=== PATIENT | female | born 1930 | race Caucasian/White ===

== ENCOUNTER 2018-10-16 21:23 | Inpatient (IN) | payer MEDICARE, OTHER ==
[~2018-10-16] VITALS: Ht 142.2 cm; Wt 76.2 kg
--- NOTE | 2018-10-16 21:35 | NUR ---
PT BIBRA C/C GEN WEAKNESS. PER PARAMEDICS JUST RELEASED FOR LOW LIVER FUNCT. PT ON MONITOR IN BED 11. NONVERBAL. WILL CONTINUE TO MONITOR.
--- NOTE | 2018-10-16 21:40 | NUR ---
FAMILY AT BEDSIDE
--- NOTE | 2018-10-16 21:48 | NUR ---
RADIOLOGY AT BEDSIDE FOR XRAY
[2018-10-16 22:26] LABS: BASOPHILS # (AUTO) 0.1 /CMM (0.0-0.2); BASOPHILS % (AUTO) 0.5 % (0.0-2.0); EOSINOPHILS % (AUTO) 1.2 % (0.0-6.0); HEMATOCRIT 34 % (33-45); HEMOGLOBIN 11.3 g/dL (11.5-14.8); LYMPHOCYTES # (AUTO) 1.1 /CMM (0.8-4.8); MEAN CORPUSCULAR HGB CONC 33 g/dl (31.0-36.0); MEAN CORPUSCULAR VOLUME 91 fL (82-100); MONOCYTES # (AUTO) 1.2 /CMM (0.1-1.30); NEUTROPHILS # (AUTO) 8.2 /CMM (1.8-8.9); NEUTROPHILS % (AUTO) 77.3 % (43.0-81.0); PLATELET COUNT (AUTO) 183 /CMM (150-450); RED BLOOD CELL COUNT(AUTO) 3.71 MIL/uL (4.0-5.2); WHITE BLOOD COUNT (AUTO) 10.6 K/uL (4.3-11.0)
[2018-10-16 22:31] LABS: CALCIUM, SERUM 8.2 mg/dL (8.5-10.1); CARBON DIOXIDE 35 mmol/L (21-32); CHLORIDE 95 mmol/L (98-107); CREATININE 2.1 mg/dL (0.6-1.3); GLUCOSE 128 mg/dL (74-106); SODIUM SERUM 135 mmol/L (136-145); UREA NITROGEN, BLOOD 60 mg/dL (7-18)
--- NOTE | 2018-10-16 22:40 | NUR ---
PT TAKEN TO RADIOLOGY VIA DUSTIN
[2018-10-16 22:44] LABS: ALANINE AMINOTRANSFERASE 25 U/L (12-78); ALBUMIN 1.6 g/dL (3.4-5.0); ALKALINE PHOSPHATASE 134 U/L (46-116); ASPARTATE AMINOTRANSFERASE 52 U/L (15-37); BILIRUBIN,DIRECT 0.8 mg/dL (0.0-0.2); BILIRUBIN,TOTAL 1.9 mg/dL (0.2-1.0); TOTAL PROTEIN, SERUM 6.2 g/dL (6.4-8.2)
[2018-10-16 22:45] LABS: POTASSIUM 2.8 mmol/L (3.5-5.1)
[2018-10-16 22:58] LABS: PHOSPHORUS 3.7 mg/dL (2.5-4.9)
[2018-10-16 23:00] LABS: BAND % (MANUAL) 2 % (0.0-5.0)
[2018-10-16 23:02] LABS: LYMPHOCYTES % (MANUAL) 9 % (16-48); MONOCYTES % (MANUAL) 11 % (0-11.0); NEUTROPHILS % (MANUAL) 78 (42-76)
[2018-10-16 23:07] LABS: APPEARANCE,URINE CLOUDY (CLEAR); BILIRUBIN,URINE NEGATIVE (NEGATIVE); BLOOD, URINE 1+ Ery/uL (NEGATIVE); COLOR,URINE YELLOW (YELLOW); KETONES,URINE NEGATIVE (NEGATIVE); LEUKOCYTE ESTERASE ,URINE 1+ (NEGATIVE); NITRITE, URINE NEGATIVE (NEGATIVE); PH,URINE 6.5 (5.0-8.0); PROTEIN,URINE NEGATIVE (NEGATIVE); UGLUCOSE NEGATIVE (NEGATIVE); UROBILINOGEN,URINE 0.2 EU/dL (0.2)
--- NOTE | 2018-10-16 23:15 | NUR ---
DR CISNEROS CALLED, UNABLE TO REACH. MD FORTE MADE AWARE
[2018-10-16] MEDS ORDERED: IV PREMIX 0.45% NS + KCL 1,000 ML IV ONE ×2 (23:17→23:39)
[2018-10-16 23:34] LABS: BACTERIA,URINE Many /HPF (None Seen); SQUAMOUS EPITHELIAL CELL,UR Few /HPF (None Seen); WBC,URINE 21-50 /HPF (0-3)
[2018-10-16] MEDS ORDERED: IV NS 0.9% 1,000 ML IV ONE (23:36)
[2018-10-17] MEDS ORDERED: IV 1/2NS 1000 ML 1,000 ML IV PRN (00:23)
[2018-10-17] MEDS ORDERED: ZOLPIDEM TARTRATE 5 MG TABLET PO PRN (00:30)
[2018-10-17] MEDS ORDERED: ACETAMINOPHEN 325 MG TABLET PO PRN (00:30)
[2018-10-17] MEDS ORDERED: MAG HYDROX/AL HYDROX/SIMETH 30 ML UDC PO PRN (00:30)
[2018-10-17] MEDS ORDERED: Z GUARD REMEDY 2 OZ OINT TP PRN (00:30)
[2018-10-17] MEDS ORDERED: ONDANSETRON HCL/PF 4 MG/2 ML VIAL IVP PRN (00:30)
[2018-10-17] MEDS ORDERED: MAGNESIUM HYDROXIDE 30 ML UDC PO PRN (00:30)
[2018-10-17] MEDS ORDERED: HYDROMORPHONE INJ 2 MG/ML DISP.SYRIN IV PRN (00:30)
--- NOTE | 2018-10-17 00:38 | NUR ---
REPORT GIVEN TO RENE KRAMER FOR VIVEK
[2018-10-17 01:30] VITALS: BP 117/51
[2018-10-17] MEDS ORDERED: CEFTRIAXONE 1 G VIAL ONE (02:21)
[2018-10-17] MEDS: CEFTRIAXONE 1 G in IV D5W 50 ML IV SCH ×2 (03:05→21:41)
[2018-10-17 04:00] VITALS: BP 127/60
[2018-10-17 06:22] LABS: CALCIUM, SERUM 7.5 mg/dL (8.5-10.1); CARBON DIOXIDE 30 mmol/L (21-32); CHLORIDE 98 mmol/L (98-107); CREATININE 1.7 mg/dL (0.6-1.3); GLUCOSE 96 mg/dL (74-106); POTASSIUM 2.9 mmol/L (3.5-5.1); SODIUM SERUM 135 mmol/L (136-145); UREA NITROGEN, BLOOD 53 mg/dL (7-18)
[2018-10-17 06:27] LABS: CHOLESTEROL 77 mg/dL (<200); HDL CHOLESTEROL 18 mg/dL (40-60); LDL 45 mg/dL (0-99); TRIGLYCERIDES 94 mg/dL (30-150)
[2018-10-17 06:30] LABS: ALANINE AMINOTRANSFERASE 24 U/L (12-78); ALKALINE PHOSPHATASE 105 U/L (46-116); ASPARTATE AMINOTRANSFERASE 46 U/L (15-37); BILIRUBIN,TOTAL 1.7 mg/dL (0.2-1.0); MAGNESIUM 1.9 mg/dL (1.8-2.4); PHOSPHORUS 3.5 mg/dL (2.5-4.9); TOTAL PROTEIN, SERUM 5.6 g/dL (6.4-8.2)
[2018-10-17 06:34] LABS: ALBUMIN 1.4 g/dL (3.4-5.0)
[2018-10-17 06:45] LABS: BASOPHILS % (AUTO) 0.4 % (0.0-2.0); HEMATOCRIT 31 % (33-45); HEMOGLOBIN 10.7 g/dL (11.5-14.8); LYMPHOCYTES # (AUTO) 1.1 /CMM (0.8-4.8); LYMPHOCYTES % (AUTO) 11.8 % (20.0-44.0); MEAN CORPUSCULAR HGB CONC 35 g/dl (31.0-36.0); MEAN CORPUSCULAR VOLUME 89 fL (82-100); MONOCYTES # (AUTO) 1.1 /CMM (0.1-1.30); MONOCYTES % (AUTO) 11.2 % (2.0-12.0); NEUTROPHILS # (AUTO) 7.2 /CMM (1.8-8.9); NEUTROPHILS % (AUTO) 75.6 % (43.0-81.0); PLATELET COUNT (AUTO) 174 /CMM (150-450); RED BLOOD CELL COUNT(AUTO) 3.48 MIL/uL (4.0-5.2); WHITE BLOOD COUNT (AUTO) 9.5 K/uL (4.3-11.0)
--- NOTE | 2018-10-17 07:00 | NUR ---
GROCERY STORE BAGGER OPENING NOTES RECEIVED PT FROM PM SHIFT FOR VIVEK. PT ON 1L O2 SAT AT 98%. PT IS AFEBRILE ST ON TELE. PT IS A/OX1. CANADIAN SPEAKING. PT IS CONFUSED PULLING OFF GOWN. IV FLUIDS RUNNING AT 75ML/HR. L HAND IV SITE NO S/SX OF INFECTION. BED IN LOCKED/LOWEST POSITION. CALL LIGHT IN REACH. WILL CONT TO MONITOR.
[2018-10-17 08:00] VITALS: BP 93/51
[2018-10-17] MEDS: PANTOPRAZOLE 40 MG VIAL IV SCH (08:47)
[2018-10-17] MEDS: HEPARIN SODIUM, PORCINE 5000 UNITS/1 ML VIAL SQ SCH ×2 (08:51→21:00)
[2018-10-17] MEDS ORDERED: POTASSIUM CHLORIDE 20 MEQ TAB.PRT.SR PO ONE (09:00)
[2018-10-17] MEDS ORDERED: SPIRONOLACTONE 25 MG TABLET PO SCH (09:00)
[2018-10-17] MEDS ORDERED: SPIR50TA5 PO (11:07)
[2018-10-17] MEDS ORDERED: LINA72CA PO (11:07)
[2018-10-17] MEDS ORDERED: METO5TAB7 PO (11:07)
[2018-10-17] MEDS ORDERED: FURO40TA5 PO (11:07)
[2018-10-17] MEDS ORDERED: FERR325T23 PO (11:07)
[2018-10-17 12:00] VITALS: BP 97/49
[2018-10-17] MEDS: LACTULOSE 10 G/15 ML UDC (PYXIS) PO PRN ×2 (12:10→18:40)
[2018-10-17] MEDS: NYSTATIN TOP POWDER 15 GM BOTTLE TP SCH ×2 (12:21→16:57)
--- NOTE | 2018-10-17 15:30 | NUR ---
MANAGER FOREIGN NOTES RADIOLOGY INFORMED NURSE PT HAS MODERATE ASCITES, WILL NEED PT/INR FOR PROCEDURE. LEFT MESSAGE FOR DR HUNTER.
--- NOTE | 2018-10-17 15:45 | NUR ---
HAND FLESHER NOTES PER CASSIE MORALES TO DO US GUIDED PARACENTESIS/STAT PT AND INR.
[2018-10-17 16:00] VITALS: BP 105/64
[2018-10-17] MEDS ORDERED: POTASSIUM CL. PREMIX PERIPHER. 50 ML IV SCH (16:00)
--- NOTE | 2018-10-17 16:26 | NUR ---
METAL BOX MAKER NOTES PER DR HUNTER, PLEASE DO PARACENTESIS EARLY AM.
--- NOTE | 2018-10-17 19:04 | NUR ---
CLAIMS EXAMINER NOTES PT ENDORSED TO PM SHIFT FOR VIVEK. PT RESTING IN BED, WITH FAMILY AT BEDSIDE. 2ND DOSE OF LACTULOSE GIVEN. 1 SMALL BM ON SHIFT NOTED. PT'S MENTATION IMPROVED SLIGHTLY ON SHIFT. PT ABLE TO STATE NAME. TOLERATING ROOM AIR WELL. NO S/SX OF DISTRESS NOTED. SCHEDULED FOR US GUIDED PARACENTESIS IN AM. PT IS NPO. ALL NEEDS ATTENDED TO. CALL LIGHT IN REACH.
--- NOTE | 2018-10-17 19:10 | NUR ---
TELE/RN INITIAL NOTES RECEIVED PT IN BED, ALERT AND VERBALLY RESPONSIVE. FAMILY AT BEDSIDE. SR HR 90S ON TELE. ON ROOM AIR, NO SOB NOTED. WITH INTACT AND PATENT LHAND G20 HEPLOCK. HOB ELEVATED. SAFETY MEASURES IN PLACED. CALL LIGHT WITHIN REACH. WILL CONT TO MONITOR. PT IS ON NPO FOR PROCEDURE TOMORROW.
[2018-10-17 20:00] VITALS: BP 106/60
[2018-10-18] VITALS: BP 109/54
[2018-10-18 04:00] VITALS: BP 108/58
[2018-10-18 06:17] LABS: BASOPHILS % (AUTO) 0.3 % (0.0-2.0); EOSINOPHILS % (AUTO) 0.7 % (0.0-6.0); HEMATOCRIT 33 % (33-45); HEMOGLOBIN 11.1 g/dL (11.5-14.8); LYMPHOCYTES # (AUTO) 0.8 /CMM (0.8-4.8); LYMPHOCYTES % (AUTO) 7.9 % (20.0-44.0); MEAN CORPUSCULAR HGB CONC 34 g/dl (31.0-36.0); MEAN CORPUSCULAR VOLUME 91 fL (82-100); MONOCYTES % (AUTO) 10.1 % (2.0-12.0); NEUTROPHILS # (AUTO) 8.1 /CMM (1.8-8.9); PLATELET COUNT (AUTO) 168 /CMM (150-450); RED BLOOD CELL COUNT(AUTO) 3.63 MIL/uL (4.0-5.2)
[2018-10-18 06:38] LABS: CALCIUM, SERUM 7.7 mg/dL (8.5-10.1); CARBON DIOXIDE 31 mmol/L (21-32); CHLORIDE 102 mmol/L (98-107); CREATININE 1.8 mg/dL (0.6-1.3); GLUCOSE 100 mg/dL (74-106); POTASSIUM 3.3 mmol/L (3.5-5.1); SODIUM SERUM 140 mmol/L (136-145); UREA NITROGEN, BLOOD 53 mg/dL (7-18)
--- NOTE | 2018-10-18 06:51 | NUR ---
RN NOTES PT RESTING COMFORTABLY IN BED. DAUGHTER AT BEDSIDE. NO ACUTE CHANGES NOTED THROUGHOUT THE SHIFT. SAFETY MEASURES OBSERVED AT ALL TIMES. PT WAS KEPT ON NPO FOR PARACENTESIS THIS AM. ENDORSED TO AM SHIFT RN FOR VIVEK
--- NOTE | 2018-10-18 07:15 | NUR ---
ASSEMBLER 1ST SHIFT OPENING NOTES RECEIVED BEDSIDE REPOST FROM NOC PT IN BED, ALERT AND VERBALLY RESPONSIVE. FAMILY AT BEDSIDE. SR HR 90S ON TELE. ON ROOM AIR, NO SIGNS OR SYMPTOMS OF RESPIRATORY DISTRESS OR ACUTE PAIN NOTED L HAND #20 GAUGE SALINE LOCK . HOB ELEVATED.PATIENT NPO AT THIS TIME FOR AM PROCEDURE SAFETY MEASURES IN PLACED. CALL LIGHT WITHIN REACH. WILL CONT TO MONITOR.
[2018-10-18 08:00] VITALS: BP 108/53
[2018-10-18] MEDS: PANTOPRAZOLE 40 MG VIAL IV SCH (08:13)
[2018-10-18] MEDS: HEPARIN SODIUM, PORCINE 5000 UNITS/1 ML VIAL SQ SCH ×2 (08:13→20:42)
[2018-10-18] MEDS: SPIRONOLACTONE 25 MG TABLET PO SCH (08:13)
[2018-10-18] MEDS: NYSTATIN TOP POWDER 15 GM BOTTLE TP SCH ×2 (08:14→16:04)
[2018-10-18] MEDS: LACTULOSE 10 G/15 ML UDC (PYXIS) PO PRN ×4 (09:58→20:41)
[2018-10-18] MEDS ORDERED: ALBUMIN 25% 12.5 GM/50 ML BOTTLE IV ONE (10:00)
--- NOTE | 2018-10-18 10:00 | NUR ---
RN MS NOTES PATIENT HAD BEDSIDE ULTRASOUND GUIDED PARACENTESIS. 3250 ML REMOVED FROM LLQ FLUIDS SENT TO CYTOLOGY AND LAB
[2018-10-18] MEDS ORDERED: POTASSIUM CHLORIDE 20 MEQ TAB.PRT.SR PO ONE (11:00)
[2018-10-18] MEDS ORDERED: ALBUMIN 25% 12.5 GM in PREMIX 1 EA IV ONE (11:30)
--- NOTE | 2018-10-18 13:43 | NUR ---
WOUND CARE CONSULT: PT PRESENTS WITH LEFT BUTTOCK INCONTINENCE ASSOCIATED SKIN DAMAGE, PRESENT ON ADMISSION. PT ALSO NOTED TO HAVE PARACENTESIS SITE DRESSINGS WITH WEEPING. PITTING EDEMA NOTED TO BE GENERALIZED. PT IS INCONTINENT. ALL SKIN PROTECTION AND WOUND CARE RECOMMENDATIONS DISCUSSED WITH NURSING STAFF. WILL SEE PRN. SOUZA AGREEMENT WITH PLAN OF CARE. Addendum: 10/18/18 at 1345 by PONCHO AMIN WNDNU Amended: Links added.
--- NOTE | 2018-10-18 15:09 | NUR ---
RN MS NOTES CALL OUT TO MD FOR FLEETS ENEMA ORDER
[2018-10-18 16:00] VITALS: BP 107/52
--- NOTE | 2018-10-18 19:00 | NUR ---
RECIEVED ALERT AND WHEN DTR TRANSLATES ANSWER HER. C/O ABD PAIN, RECIEVING LACTULSE NEEDING TO HAVE A BM ABD ROUND
--- NOTE | 2018-10-18 19:20 | NUR ---
RN MS CLOSING NOTES PT RESTING COMFORTABLY IN BED. DAUGHTER AT BEDSIDE. NO ACUTE CHANGES NOTED THROUGHOUT THE SHIFT.DRESSING REINFORCED TO LLQ PUNCTURE SITE. LACTULOSE GIVEN SAFETY MEASURES OBSERVED AT ALL TIMES. ENDORSED TO PM SHIFT RX SMALL BM N FOR VIVEK
[2018-10-18 20:00] VITALS: BP 117/66
[2018-10-18] MEDS: CEFTRIAXONE 1 G in IV D5W 50 ML IV SCH (20:41)
[2018-10-18] MEDS: HYDROCODONE/APAP 5/325MG 1 EACH TABLET PO PRN (20:43)
[2018-10-18 21:00] VITALS: BP 117/66
[2018-10-19] MEDS: HYDROCODONE/APAP 5/325MG 1 EACH TABLET PO PRN ×2 (01:00→02:01)
[2018-10-19] MEDS: LACTULOSE 10 G/15 ML UDC (PYXIS) PO PRN ×2 (01:09→07:39)
[2018-10-19] MEDS ORDERED: LACTULOSE 10 G/15 ML UDC (PYXIS) ONE (01:13)
[2018-10-19 04:00] VITALS: BP 97/57
[2018-10-19 04:07] VITALS: BP 119/66
[2018-10-19 05:01] VITALS: BP 97/57
--- NOTE | 2018-10-19 05:26 | NUR ---
ending notes: patient awake most of the night. d/t abd cramps. dtr. insisted that she be given lactulose, explained to her her mom needs to rest. 2 doses given last dose @ 01:00. Medicated with norco 5/325 tablet times 2 last dose 0100 and effective she would sleep 1 - 2 hrs. abd round taunt BS via auscultation present. 0 BM this shift
[2018-10-19] MEDS: PANTOPRAZOLE 40 MG VIAL IV SCH (07:38)
[2018-10-19 08:00] VITALS: BP 100/66
--- NOTE | 2018-10-19 09:00 | NUR ---
RN NOTES PATIENT SEEN & EXAMINED BY DR HUNTER & RECEIVED NEW ORDERS FOR STAT KUB AND LACTULOSE ENEMA. NEW ORDERS NOTED & CARRIED OUT.
[2018-10-19] MEDS: SPIRONOLACTONE 25 MG TABLET PO SCH (09:37)
[2018-10-19] MEDS: NYSTATIN TOP POWDER 15 GM BOTTLE TP SCH ×2 (09:40→16:49)
[2018-10-19] MEDS: HEPARIN SODIUM, PORCINE 5000 UNITS/1 ML VIAL SQ SCH ×2 (09:41→20:23)
[2018-10-19 11:02] LABS: BASOPHILS # (AUTO) 0.1 /CMM (0.0-0.2); BASOPHILS % (AUTO) 0.8 % (0.0-2.0); EOSINOPHILS % (AUTO) 0.5 % (0.0-6.0); HEMATOCRIT 36 % (33-45); HEMOGLOBIN 11.8 g/dL (11.5-14.8); LYMPHOCYTES # (AUTO) 0.8 /CMM (0.8-4.8); LYMPHOCYTES % (AUTO) 5.7 % (20.0-44.0); MEAN CORPUSCULAR HGB CONC 33 g/dl (31.0-36.0); MEAN CORPUSCULAR VOLUME 91 fL (82-100); MONOCYTES % (AUTO) 7.1 % (2.0-12.0); NEUTROPHILS # (AUTO) 12.7 /CMM (1.8-8.9); NEUTROPHILS % (AUTO) 85.9 % (43.0-81.0); PLATELET COUNT (AUTO) 215 /CMM (150-450); RED BLOOD CELL COUNT(AUTO) 3.94 MIL/uL (4.0-5.2); WHITE BLOOD COUNT (AUTO) 14.7 K/uL (4.3-11.0)
[2018-10-19 11:14] LABS: ALANINE AMINOTRANSFERASE 28 U/L (12-78); ALBUMIN 1.5 g/dL (3.4-5.0); ALKALINE PHOSPHATASE 84 U/L (46-116); ASPARTATE AMINOTRANSFERASE 45 U/L (15-37); CALCIUM, SERUM 7.9 mg/dL (8.5-10.1); CARBON DIOXIDE 24 mmol/L (21-32); CHLORIDE 98 mmol/L (98-107); CREATININE 2.3 mg/dL (0.6-1.3); GLUCOSE 167 mg/dL (74-106); MAGNESIUM 2.4 mg/dL (1.8-2.4); PHOSPHORUS 4.1 mg/dL (2.5-4.9); POTASSIUM 3.7 mmol/L (3.5-5.1); SODIUM SERUM 133 mmol/L (136-145); TOTAL PROTEIN, SERUM 5.9 g/dL (6.4-8.2); UREA NITROGEN, BLOOD 56 mg/dL (7-18)
[2018-10-19] MEDS ORDERED: LACTULOSE UDC 200 G in SODIUM CHLORIDE IRRIG SOLUTION 400 ML IR ONE (12:00)
[2018-10-19 16:00] VITALS: BP_SYST 100; BP_SYST 105; BP_DIAS 55; BP_DIAS 66
--- NOTE | 2018-10-19 16:02 | NUR ---
RN NOTES LACTULOSE ENEMA GIVEN ORDERED & LARGE BM NOTED. ORTIZ CATH INSERTED W/ CLOUDY, YELLOW URINE NOTED. URINE SAMPLE COLLECTED.
[2018-10-19 16:21] LABS: CREATININE, URINE 123.5 MG/DL (30.0-125.0); URINE TOTAL PROTEIN 28.9 mg/dL (0-11.9)
[2018-10-19 16:37] LABS: APPEARANCE,URINE CLOUDY (CLEAR); BILIRUBIN,URINE NEGATIVE (NEGATIVE); BLOOD, URINE 1+ Ery/uL (NEGATIVE); COLOR,URINE YELLOW (YELLOW); KETONES,URINE NEGATIVE (NEGATIVE); LEUKOCYTE ESTERASE ,URINE 2+ (NEGATIVE); NITRITE, URINE NEGATIVE (NEGATIVE); PH,URINE 5.5 (5.0-8.0); PROTEIN,URINE NEGATIVE (NEGATIVE); UGLUCOSE NEGATIVE (NEGATIVE); UROBILINOGEN,URINE 0.2 EU/dL (0.2)
[2018-10-19 16:46] LABS: BACTERIA,URINE Few /HPF (None Seen); SQUAMOUS EPITHELIAL CELL,UR Few /HPF (None Seen); WBC,URINE 51-80 /HPF (0-3)
[2018-10-19 17:05] LABS: EOSINOPHIL,URINE None Seen
--- NOTE | 2018-10-19 18:38 | NUR ---
LIME KILN AND RECAUSTICIZING OPERATOR. WHILE PT DAUGHTER FEEDING PT VOMITED. VITALS STABLE. NO ACUTE DISTRESS NOTED. ZOFRAN GIVEN PER MD ORDERED. WILL CONTINUE TO MONITOR.
[2018-10-19 20:00] VITALS: BP 110/64
[2018-10-19] MEDS: CEFTRIAXONE 1 G in IV D5W 50 ML IV SCH (20:23)
[2018-10-20 04:00] VITALS: BP 105/59
[2018-10-20 06:21] LABS: BASOPHILS # (AUTO) 0.1 /CMM (0.0-0.2); BASOPHILS % (AUTO) 0.4 % (0.0-2.0); EOSINOPHILS % (AUTO) 1.2 % (0.0-6.0); HEMATOCRIT 37 % (33-45); HEMOGLOBIN 12.1 g/dL (11.5-14.8); LYMPHOCYTES # (AUTO) 1.4 /CMM (0.8-4.8); LYMPHOCYTES % (AUTO) 8.6 % (20.0-44.0); MEAN CORPUSCULAR HGB CONC 33 g/dl (31.0-36.0); MEAN CORPUSCULAR VOLUME 90 fL (82-100); MONOCYTES # (AUTO) 1.7 /CMM (0.1-1.30); MONOCYTES % (AUTO) 10.8 % (2.0-12.0); NEUTROPHILS # (AUTO) 12.7 /CMM (1.8-8.9); PLATELET COUNT (AUTO) 217 /CMM (150-450); RED BLOOD CELL COUNT(AUTO) 4.05 MIL/uL (4.0-5.2); WHITE BLOOD COUNT (AUTO) 16.1 K/uL (4.3-11.0)
[2018-10-20 06:53] LABS: ALANINE AMINOTRANSFERASE 26 U/L (12-78); ALKALINE PHOSPHATASE 87 U/L (46-116); ASPARTATE AMINOTRANSFERASE 50 U/L (15-37); BILIRUBIN,TOTAL 1.9 mg/dL (0.2-1.0); CALCIUM, SERUM 7.9 mg/dL (8.5-10.1); CARBON DIOXIDE 26 mmol/L (21-32); CHLORIDE 98 mmol/L (98-107); CREATININE 2.4 mg/dL (0.6-1.3); GLUCOSE 94 mg/dL (74-106); MAGNESIUM 2.8 mg/dL (1.8-2.4); PHOSPHORUS 4.8 mg/dL (2.5-4.9); POTASSIUM 4.7 mmol/L (3.5-5.1); SODIUM SERUM 132 mmol/L (136-145); UREA NITROGEN, BLOOD 61 mg/dL (7-18)
[2018-10-20 06:57] LABS: ALBUMIN 1.4 g/dL (3.4-5.0)
[2018-10-20 07:02] LABS: CREATINE KINASE, TOTAL 70 U/L (26-192)
--- NOTE | 2018-10-20 07:51 | NUR ---
RN AM SHIFT NOTE PATIENT AWAKE RESPONSIVE TO VERBAL STIMULI. ALERT X2 GENERALIZED EDEMA NOTED. ORTIZ CATH DRAINING AND PATENT. BEDREST, RENAL PUREE DIET. RT IV 20 GAUGE PATENT, PT OT TOLERATED, ASITES SP TAP TO DRAIN FLUID DONE 10/18. BED IN LOW POSITION, SIDE RAILS UP CONTINUE TO MONITOR.
[2018-10-20 08:00] VITALS: BP 94/50
[2018-10-20] MEDS: SPIRONOLACTONE 25 MG TABLET PO SCH (08:07)
[2018-10-20] MEDS: PANTOPRAZOLE 40 MG VIAL IV SCH (08:09)
[2018-10-20] MEDS: HEPARIN SODIUM, PORCINE 5000 UNITS/1 ML VIAL SQ SCH ×2 (08:10→21:04)
[2018-10-20] MEDS: NYSTATIN TOP POWDER 15 GM BOTTLE TP SCH ×2 (09:00→17:05)
[2018-10-20] MEDS ORDERED: DOCUSATE SODIUM 100 MG CAPSULE PO ONE (10:00)
[2018-10-20] MEDS: HYDROCODONE/APAP 5/325MG 1 EACH TABLET PO PRN (10:11)
[2018-10-20] MEDS: LACTULOSE 10 G/15 ML UDC (PYXIS) PO PRN ×2 (10:32→21:12)
[2018-10-20] MEDS: IV NS 0.9% 1,000 ML IV PRN (11:43)
[2018-10-20 12:00] VITALS: BP 94/50
[2018-10-20 16:00] VITALS: BP 91/49
--- NOTE | 2018-10-20 19:35 | NUR ---
RN CLOSING NOTE PATIENT IN BED ALERT X2. MS FLOOR. RENAL PUREE DIET. ATE 50% BREAKFAST LUNCH AND DINNER. FAMILY AT BEDSIDE. IV CHANGED LEFT HAND PATENT AND INTACT. PATIENT COMFORTABLE , BED IN LOW POSITION. CONTINUE TO MONITOR. MONITOR AMONIA LEVELS PER MD ORDER.
[2018-10-20 20:00] VITALS: BP 93/50
--- NOTE | 2018-10-20 20:00 | NUR ---
RN INITIAL NOTE PATIENT IN BED, AWAKE. FAMILY AT BEDSIDE. A&O X2. GENERALIZED EDEMA NOTED. ORTIZ CATH DRAINING AND PATENT. BEDREST, RT IV 20 GAUGE PATENT, ASIKAMINI SP TAP TO DRAIN FLUID DONE 10/18. BED IN LOW LOCKED POSITION, SIDE RAILS UP X2, CALL LIGHT IN REACH. WILL CONTINUE TO MONITOR.
[2018-10-20] MEDS: CEFTRIAXONE 1 G in IV D5W 50 ML IV SCH (21:03)
[2018-10-21 04:00] VITALS: BP 93/50
[2018-10-21] MEDS: IV NS 0.9% 1,000 ML IV PRN ×2 (04:35→23:49)
--- NOTE | 2018-10-21 06:10 | NUR ---
RN CLOSING NOTES PT RESTING COMFORTABLY IN BED. DAUGHTER AT BEDSIDE. NO ACUTE CHANGES NOTED THROUGHOUT THE SHIFT. LACTULOSE GIVEN SAFETY MEASURES OBSERVED AT ALL TIMES. ENDORSED TO AM SHIFT FOR VIVEK
[2018-10-21 07:21] LABS: BASOPHILS # (AUTO) 0.1 /CMM (0.0-0.2); BASOPHILS % (AUTO) 0.4 % (0.0-2.0); EOSINOPHILS % (AUTO) 0.8 % (0.0-6.0); HEMATOCRIT 33 % (33-45); HEMOGLOBIN 11.1 g/dL (11.5-14.8); LYMPHOCYTES # (AUTO) 1.3 /CMM (0.8-4.8); LYMPHOCYTES % (AUTO) 7.6 % (20.0-44.0); MEAN CORPUSCULAR HGB CONC 34 g/dl (31.0-36.0); MEAN CORPUSCULAR VOLUME 90 fL (82-100); MONOCYTES % (AUTO) 11.6 % (2.0-12.0); NEUTROPHILS # (AUTO) 13.9 /CMM (1.8-8.9); NEUTROPHILS % (AUTO) 79.6 % (43.0-81.0); PLATELET COUNT (AUTO) 204 /CMM (150-450); RED BLOOD CELL COUNT(AUTO) 3.67 MIL/uL (4.0-5.2); WHITE BLOOD COUNT (AUTO) 17.4 K/uL (4.3-11.0)
--- NOTE | 2018-10-21 07:30 | NUR ---
INITIAL: PATIENT IN BED, AWAKE. FAMILY AT BEDSIDE. A&O X2. GENERALIZED EDEMA NOTED. ORTIZ CATH DRAINING AND PATENT. BEDREST, RT IV 20 GAUGE PATENT, ASITES SP TAP TO DRAIN FLUID DONE 10/18. BED IN LOW LOCKED POSITION, SIDE RAILS UP X2, CALL LIGHT IN REACH. WILL CONTINUE TO MONITOR.
[2018-10-21] MEDS: PANTOPRAZOLE 40 MG VIAL IV SCH (07:38)
[2018-10-21 08:00] VITALS: BP 108/49
[2018-10-21 08:07] LABS: AFP, TUMOR MARKER 3.8 ng/mL (0.0-8.3)
[2018-10-21 08:08] LABS: CALCIUM, SERUM 7.4 mg/dL (8.5-10.1); CARBON DIOXIDE 27 mmol/L (21-32); CHLORIDE 95 mmol/L (98-107); CREATININE 2.6 mg/dL (0.6-1.3); GLUCOSE 89 mg/dL (74-106); MAGNESIUM 2.7 mg/dL (1.8-2.4); PHOSPHORUS 4.1 mg/dL (2.5-4.9); POTASSIUM 4.6 mmol/L (3.5-5.1); SODIUM SERUM 130 mmol/L (136-145); UREA NITROGEN, BLOOD 68 mg/dL (7-18)
[2018-10-21] MEDS: DOCUSATE SODIUM 100 MG CAPSULE PO SCH (08:50)
[2018-10-21 08:52] LABS: EOSINOPHILS % (MANUAL) 2 % (0-4); LYMPHOCYTES % (MANUAL) 7 % (16-48); MONOCYTES % (MANUAL) 11 % (0-11.0); NEUTROPHILS % (MANUAL) 80 (42-76)
[2018-10-21] MEDS: NYSTATIN TOP POWDER 15 GM BOTTLE TP SCH ×2 (08:52→16:18)
[2018-10-21] MEDS: HEPARIN SODIUM, PORCINE 5000 UNITS/1 ML VIAL SQ SCH ×2 (08:54→20:41)
[2018-10-21 12:00] VITALS: BP 108/56
[2018-10-21 16:00] VITALS: BP 99/51
[2018-10-21] MEDS: LACTULOSE 10 G/15 ML UDC (PYXIS) PO PRN (16:38)
--- NOTE | 2018-10-21 18:05 | NUR ---
closing PT RESTING COMFORTABLY IN BED. DAUGHTER AT BEDSIDE. NO ACUTE CHANGES NOTED THROUGHOUT THE SHIFT.DRESSING REINFORCED TO LLQ PUNCTURE SITE. LACTULOSE GIVEN SAFETY MEASURES OBSERVED AT ALL TIMES. ENDORSED TO PM SHIFT MEDIUM BM X3.
[2018-10-21 20:00] VITALS: BP 107/52
--- NOTE | 2018-10-21 20:00 | NUR ---
RN OPENING NOTE: RECEIVED PATIENT IN BED, AWAKE, ALERT AND VERBALLY RESPONSIVE YAKUT SPEAKING ONLY. RESPIRATION EVEN AND UNLABORED ON O2 2L/MIN VIA NC SATURATING 97%. NO FACIAL GRIMACING NOTED. AN YAKUT SPEAKING NURSE WAS ASKED TO INTERPRET FOR THE PATIENT. (R) FOREARM IV LINE NOTED PATENT AND INTACT INFUSING NS @75ML/HR. ORTIZ CATHETER IN PLACED WITH YELLOW URINE DRAINING TO GRAVITY. BED ALARMED AND ON LOWEST POSITION. CALL LIGHT WITHIN REACH. NEEDS ANTICIPATED.
[2018-10-21] MEDS: CEFTRIAXONE 1 G in IV D5W 50 ML IV SCH (20:36)
[2018-10-22 04:00] VITALS: BP 93/45
--- NOTE | 2018-10-22 07:00 | NUR ---
MS RN NOTES RECEIVED PT IN BED, FAMILY AT BEDSIDE. PT ON 2L NC. TOLERATING WELL. NO S/SX OF DISTRESS. PT C/O TINGLING IN FEET. BLE EDEMA 4+ NOTED. PT ON IV FLUIDS/ PATENT IV SITE NO INFECTION. F/C DRAINING CLEAR YELLOW URINE. PT IS A/OX2. ABD DISTENDED ACTIVE BS. BED IN LOCKED/LOWEST POSITION. ON HIGH FOWLERS POSITION. WILL CONT TO MONITOR
--- NOTE | 2018-10-22 07:30 | NUR ---
RN CLOSING NOTE: PATIENT REMAINED ON STABLE CONDITION. REPORT GIVEN TO PM SHIFT NURSE FOR CONTINUITY OF CARE.
--- NOTE | 2018-10-22 07:30 | NUR ---
RN CLOSING NOTE: REPORT GIVEN TO AM SHIFT NURSE FOR CONTINUITY OF CARE.
[2018-10-22 08:00] VITALS: BP 99/55
[2018-10-22] MEDS: PANTOPRAZOLE 40 MG VIAL IV SCH (09:07)
[2018-10-22] MEDS: DOCUSATE SODIUM 100 MG CAPSULE PO SCH (09:07)
[2018-10-22] MEDS: LACTULOSE 10 G/15 ML UDC (PYXIS) PO PRN (09:07)
[2018-10-22] MEDS: HEPARIN SODIUM, PORCINE 5000 UNITS/1 ML VIAL SQ SCH ×2 (09:08→20:22)
[2018-10-22] MEDS: NYSTATIN TOP POWDER 15 GM BOTTLE TP SCH ×2 (09:17→17:34)
[2018-10-22 10:24] LABS: BASOPHILS # (AUTO) 0.1 /CMM (0.0-0.2); BASOPHILS % (AUTO) 0.5 % (0.0-2.0); EOSINOPHILS % (AUTO) 0.8 % (0.0-6.0); HEMATOCRIT 36 % (33-45); HEMOGLOBIN 11.7 g/dL (11.5-14.8); LYMPHOCYTES # (AUTO) 1.3 /CMM (0.8-4.8); LYMPHOCYTES % (AUTO) 6.5 % (20.0-44.0); MEAN CORPUSCULAR HGB CONC 33 g/dl (31.0-36.0); MEAN CORPUSCULAR VOLUME 91 fL (82-100); MONOCYTES # (AUTO) 1.3 /CMM (0.1-1.30); MONOCYTES % (AUTO) 6.9 % (2.0-12.0); NEUTROPHILS # (AUTO) 16.5 /CMM (1.8-8.9); NEUTROPHILS % (AUTO) 85.3 % (43.0-81.0); PLATELET COUNT (AUTO) 231 /CMM (150-450); RED BLOOD CELL COUNT(AUTO) 3.91 MIL/uL (4.0-5.2); WHITE BLOOD COUNT (AUTO) 19.3 K/uL (4.3-11.0)
[2018-10-22 10:34] LABS: CALCIUM, SERUM 7.3 mg/dL (8.5-10.1); CARBON DIOXIDE 22 mmol/L (21-32); CHLORIDE 94 mmol/L (98-107); CREATININE 2.4 mg/dL (0.6-1.3); GLUCOSE 169 mg/dL (74-106); POTASSIUM 4.2 mmol/L (3.5-5.1); SODIUM SERUM 126 mmol/L (136-145); UREA NITROGEN, BLOOD 65 mg/dL (7-18)
[2018-10-22 10:35] LABS: SERUM AMMONIA 77 umol/L (11-32)
[2018-10-22 10:40] LABS: ALANINE AMINOTRANSFERASE 26 U/L (12-78); ALKALINE PHOSPHATASE 141 U/L (46-116); ASPARTATE AMINOTRANSFERASE 55 U/L (15-37); BILIRUBIN,TOTAL 1.1 mg/dL (0.2-1.0); TOTAL PROTEIN, SERUM 5.6 g/dL (6.4-8.2)
[2018-10-22 10:43] LABS: ALBUMIN 1.3 g/dL (3.4-5.0)
[2018-10-22 14:08] LABS: BAND % (MANUAL) 3 % (0.0-5.0); LYMPHOCYTES % (MANUAL) 4 % (16-48); MONOCYTES % (MANUAL) 1 % (0-11.0); NEUTROPHILS % (MANUAL) 92 (42-76)
[2018-10-22 16:00] VITALS: BP 90/47
--- NOTE | 2018-10-22 16:00 | NUR ---
MS RN NOTES DR EVERETT ROUNDING WITH PATIENT. PER , NO NEED TO GIVE LACTULOSE Q4H; LONG PT IS HAVING 2-3 BM/DAY.
[2018-10-22] MEDS: IV NS 0.9% 1,000 ML IV PRN (16:44)
--- NOTE | 2018-10-22 19:00 | NUR ---
MS RN CLOSING NOTES PT ENDORSED TO PM SHIFT FOR VIVEK. PT RESTING IN BED. TOLERATING O2 NC WELL. FAMILY AT BEDSIDE. BED IN LOCKED/LOWEST POSITION. CALL LIGHT IN REACH. ALL NEEDS ATTENDED TO.
--- NOTE | 2018-10-22 19:25 | NUR ---
MS RN NOTES DR HERNANDEZ CALLED BACK RE LACTIC ACID. NO NEW ORDERS GIVEN
--- NOTE | 2018-10-22 19:50 | NUR ---
RN MS OPENING NOTES RECEIVED PT IN BED, SLEEPING EASILY AROUSED TO TACTILE STIMULI. DAUGHTER AT BEDSIDE BREATHING EVEN AND UNLABORED AT THE MOMENT ON 2L OF O2 NC. F/C IN PLACE, COLLECTING CLEAR YELLOW OUTPUT. IV ACCESS ON THE RIGHT FA 22G WITH NS @75ML/HR. BED IN LOWEST LOCKED POSITION, CALL LIGHT WITHIN REACH AT ALL TIMES, WILL CONTINUE TO MONITOR.
[2018-10-22] MEDS: CEFTRIAXONE 1 G in IV D5W 50 ML IV SCH (20:21)
[2018-10-22 21:04] LABS: BILIRUBIN,DIRECT 0.5 mg/dL (0.0-0.2)
--- NOTE | 2018-10-22 22:59 | NUR ---
LACTIC ACID REDRAW OF 2.[address] HERNANDEZ, WHO REPLIED SAYING "NO SIGNIFICANT CHANGES"
[2018-10-23] VITALS: BP 93/53
[2018-10-23] MEDS ORDERED: IV NS 0.9% 1,000 ML BAG IV ONE (02:30)
--- NOTE | 2018-10-23 03:57 | NUR ---
PT BP AT 83/40, PAGED MARY, 1L BOLUS ORDERED, AFTER 200ML BP INCREASED TO 93/53, WILL CONTINUE TO MONITOR
[2018-10-23] MEDS: IV NS 0.9% 1,000 ML IV PRN (05:29)
[2018-10-23 06:29] LABS: APPEARANCE,URINE SL CLOUDY (CLEAR); BILIRUBIN,URINE NEGATIVE (NEGATIVE); BLOOD, URINE 2+ Ery/uL (NEGATIVE); KETONES,URINE NEGATIVE (NEGATIVE); LEUKOCYTE ESTERASE ,URINE TRACE (NEGATIVE); NITRITE, URINE NEGATIVE (NEGATIVE); PH,URINE 5.5 (5.0-8.0); PROTEIN,URINE NEGATIVE (NEGATIVE); UGLUCOSE NEGATIVE (NEGATIVE); UROBILINOGEN,URINE 0.2 EU/dL (0.2)
[2018-10-23 06:41] LABS: COLOR,URINE DARK YELLOW (YELLOW)
--- NOTE | 2018-10-23 06:41 | NUR ---
RN MS CLOSING NOTES PT REMAINS IN BED, AWAKE ALERT ORIENTEDX2. DAUGHTER AT BEDSIDE. BREATHING EVEN AND UNLABORED AT THE MOMENT ON 2L OF O2 NC. F/C IN PLACE, COLLECTING CLEAR YELLOW OUTPUT. IV ACCESS ON THE LEFT HAND 22G WITH NS @75ML/HR. BED IN LOWEST LOCKED POSITION, CALL LIGHT WITHIN REACH AT ALL TIMES, WILL ENDORSE TO DAY NURSE FOR VIVEK
[2018-10-23 06:44] LABS: BACTERIA,URINE Moderate /HPF (None Seen); SQUAMOUS EPITHELIAL CELL,UR Few /HPF (None Seen)
[2018-10-23 06:45] LABS: YEAST,URINE Moderate /HPF (None Seen)
--- NOTE | 2018-10-23 07:15 | NUR ---
RN MS OPENING NOTES RECEIVED BEDSIDE REPORT FROM NOC RN. PATIENT IN BED AWAKE A/O X3 CAMEROONIAN SPEAKING DAUGHTER AT BEDSIDE NO SIGNS OR SYMPTOMS OF RESPIRATORY DISTRESS ON 2 LTRS NASAL CANNULA OR ACUTE PAIN ORTIZ CATH DRAINING DARK YELLOW URINE WITH SOME BLOOD STREAKS. ABDOMEN IS ROUNDED AND HARD. IVF IN (L) HAND NS @ 75 ML/HR . NO INFILTRATION NOTED. LABS TO BE DRAWN AND REVIEWED. WILL OBTAIN A MIDLINE PATIENT IS HARD STICK. SAFETY PRECAUTIONS IN PLACE BED IN LOW POSITION CALL LIGHT WITHIN REACH. WILL CONT TO MONITOR
[2018-10-23 08:00] VITALS: BP 89/50
[2018-10-23 08:07] LABS: *SPE A/G RATIO 0.5 (0.7-1.7); *SPE ALBUMIN 1.9 g/dL (2.9-4.4); *SPE ALPHA-1-GLOBULIN 0.2 g/dL (0.0-0.4); *SPE ALPHA-2-GLOBULIN 0.4 g/dL (0.4-1.0); *SPE BETA GLOBULIN 0.9 g/dL (0.7-1.3); *SPE GLOBULIN, TOTAL 3.7 g/dL (2.2-3.9); *SPE M-SPIKE 1.7 g/dL (Not Observed); *SPEGAMMA GLOBULIN 2.3 g/dL (0.4-1.8)
[2018-10-23 08:48] LABS: CALCIUM, SERUM 7.2 mg/dL (8.5-10.1); CARBON DIOXIDE 24 mmol/L (21-32); CHLORIDE 96 mmol/L (98-107); GLUCOSE 94 mg/dL (74-106); MAGNESIUM 2.4 mg/dL (1.8-2.4); PHOSPHORUS 3.8 mg/dL (2.5-4.9); POTASSIUM 4.1 mmol/L (3.5-5.1); SODIUM SERUM 127 mmol/L (136-145); UREA NITROGEN, BLOOD 64 mg/dL (7-18)
[2018-10-23 08:59] LABS: THYROID STIMULATING HORMONE 2.316 uIU/mL (0.358-3.74); URIC ACID 10.1 mg/dL (2.6-7.2)
[2018-10-23] MEDS: DOCUSATE SODIUM 100 MG CAPSULE PO SCH (09:00)
[2018-10-23] MEDS: FAMOTIDINE/PF INJ 20 MG/2 ML VIAL IV SCH ×2 (09:00→20:51)
[2018-10-23] MEDS: HEPARIN SODIUM, PORCINE 5000 UNITS/1 ML VIAL SQ SCH (09:02)
[2018-10-23 09:42] LABS: OSMOLALITY,URINE 415 mOS/kg (340-1090)
[2018-10-23 09:45] LABS: BASOPHILS # (AUTO) 0.1 /CMM (0.0-0.2); BASOPHILS % (AUTO) 0.4 % (0.0-2.0); EOSINOPHILS % (AUTO) 0.9 % (0.0-6.0); HEMATOCRIT 37 % (33-45); HEMOGLOBIN 12.4 g/dL (11.5-14.8); LYMPHOCYTES # (AUTO) 1.3 /CMM (0.8-4.8); LYMPHOCYTES % (AUTO) 6.2 % (20.0-44.0); MEAN CORPUSCULAR HGB CONC 34 g/dl (31.0-36.0); MEAN CORPUSCULAR VOLUME 91 fL (82-100); MONOCYTES # (AUTO) 1.8 /CMM (0.1-1.30); MONOCYTES % (AUTO) 8.3 % (2.0-12.0); NEUTROPHILS # (AUTO) 18.4 /CMM (1.8-8.9); NEUTROPHILS % (AUTO) 84.2 % (43.0-81.0); PLATELET COUNT (AUTO) 222 /CMM (150-450); RED BLOOD CELL COUNT(AUTO) 4.06 MIL/uL (4.0-5.2); WHITE BLOOD COUNT (AUTO) 21.8 K/uL (4.3-11.0)
[2018-10-23 09:46] LABS: URINE SODIUM, RANDOM < 5 mmol/l (40-220)
[2018-10-23 09:58] LABS: CARBON DIOXIDE 24 mmol/L (21-32); CHLORIDE 97 mmol/L (98-107); CREATININE 2.1 mg/dL (0.6-1.3); GLUCOSE 109 mg/dL (74-106); POTASSIUM 4.1 mmol/L (3.5-5.1); SODIUM SERUM 127 mmol/L (136-145); UREA NITROGEN, BLOOD 66 mg/dL (7-18)
[2018-10-23 10:05] LABS: SERUM AMMONIA 64 umol/L (11-32)
[2018-10-23 10:17] LABS: BAND % (MANUAL) 3 % (0.0-5.0); LYMPHOCYTES % (MANUAL) 8 % (16-48); MONOCYTES % (MANUAL) 2 % (0-11.0); NEUTROPHILS % (MANUAL) 87 (42-76)
[2018-10-23] MEDS: NYSTATIN TOP POWDER 15 GM BOTTLE TP SCH ×2 (11:03→17:06)
[2018-10-23] MEDS ORDERED: ALBUMIN 25% 12.5 GM/50 ML BOTTLE IV ONE (13:00)
[2018-10-23] MEDS ORDERED: ALBUMIN 5% 12.5 GM in PREMIX 1 EA IV ONE (13:00)
--- NOTE | 2018-10-23 13:05 | NUR ---
RN MS NOTES PATIENT MADE NPO FOR US OF ABDOMEN. PATENT ALSO POSITIVE FOR (R) FEMORAL DVT DR SOLO AWARE ORDERS TO START HEPARIN DRIP. PT/INR DRAWN FOR BASELINE
[2018-10-23] MEDS: HEPARIN INFUSION/D5W 500 ML IV PRN (15:12)
[2018-10-23] MEDS ORDERED: HEPARIN SODIUM, PORCINE 5000 UNITS/1 ML VIAL IV ONE (15:30)
[2018-10-23] MEDS ORDERED: DOSE PER PHARMACY MICAFUNGIN 1 EA XX PRN (15:30)
[2018-10-23 16:00] VITALS: BP 83/40
[2018-10-23] MEDS: MICAFUNGIN SODIUM 100 MG in IV NS 0.9% 100 ML IV SCH (16:20)
[2018-10-23] MEDS: CLOTRIMAZOLE 10 MG TROCHE MM SCH ×3 (16:22→20:50)
--- NOTE | 2018-10-23 16:41 | NUR ---
RN MS NOTES PATIENT GIVEN 3000 UNITS BOLUS HEPARIN PER DR SOLO. HOLDING IVF D/T PATIENT HAS +4 PITTING EDEMA
--- NOTE | 2018-10-23 19:15 | NUR ---
MS/RN INITIAL NOTES RECEIVED PT IN BED, ALERT AND VERBALLY RESPONSIVE. DAUGHTER AT BEDSIDE. ON 2L O2 VIA NC, NO SOB NOTED. WITH ONGOING HEPARIN DRIP AT 1250 UNITS/KG (25MLS/HR) ON LHAND G22 IV. NEXT PTT @2100. F/C INTACT AND IN PLACED, DRAINING BY GRAVITY. PER AM RN REPORT, PT'S BP HAS BEEN LOW ON SBP OF 80S. IVF NS WAS HELD DURING AM SHIFT. HOB ELEVATED. SAFETY MEASURES AND ASPIRATION PRECAUTION IN PLACED. CALL LIGHT WITHIN EASY REACH. WILL CONT TO MONITOR
--- NOTE | 2018-10-23 19:30 | NUR ---
RN NOTES CURRENT BP 82/49. RECHECKED 3X, SBP STILL ON 80S. NOTIFIED TECHNICAL SOLUTIONS ENGINEER MARY RE: PT'S BP. AWAITING FOR ORDERS
--- NOTE | 2018-10-23 19:31 | NUR ---
RN MS CLOSING NOTES PATIENT IN BED AWAKE A/O X3 TANZANIAN SPEAKING DAUGHTER AT BEDSIDE NO SIGNS OR SYMPTOMS OF RESPIRATORY DISTRESS ON 2 LTRS NASAL CANNULA OR ACUTE PAIN ORTIZ CATH DRAINING DARK YELLOW URINE WITH SOME BLOOD STREAKS. ABDOMEN IS ROUNDED AND HARD.PITTING +4 AND BILATERAL EXTREMITIES IVF IN (L) HAND NS @5ML/HR TKO HEPARIN RUNNING 1250 UNITS/ 25 ML/HR . NO INFILTRATION NOTED.PTT/INR NEXT DRAW AT 2100. WILL . SAFETY PRECAUTIONS IN PLACE BED IN LOW POSITION CALL LIGHT WITHIN REACH. VIVEK
[2018-10-23 20:00] VITALS: BP_SYST 100; BP_SYST 82; BP_DIAS 42; BP_DIAS 56
--- NOTE | 2018-10-23 20:00 | NUR ---
RN NOTES RECHECK BP= 100/56. TOLL PATROLMAN MARY IN UNIT. UPDATED WITH PT'S CONDITION. VERIFY IF WANT TO CONTINUE OR D/C IVF NS AT 75 ML/HR. PER TOLL PATROLMAN CONT IVF AND CONT TO MONITOR
[2018-10-23] MEDS: CEFTRIAXONE 1 G in IV D5W 50 ML IV SCH (20:51)
--- NOTE | 2018-10-23 22:00 | NUR ---
RN NOTES CALLED LAB TO FOLLOW UP PTT RESULT, PER LAB RESULT NOT READY YET.
--- NOTE | 2018-10-23 22:10 | NUR ---
RN NOTES REPEAT PTT DONE, PER CHECO(LAB) PREVIOUS PTT WAS TOO HIGH, NEED TO RECHECK
--- NOTE | 2018-10-23 23:00 | NUR ---
RN NOTES RECEIVED CALL FROM LELO (LAB), PER LELO REPEAT PTT UNABLE TO READ, INDICATE THAT PTT IS MORE THAN 170 NOTIFIED CAREER TRANSITION SPECIALIST JESSE HERNANDEZ RE: PTT LEVEL OF >170, HEPARIN DRIP WAS HELD, CAREER TRANSITION SPECIALIST ORDERED: HOLD DRIP FOR 1HOUR, DECREASE RATE TO 1000UNITS/KG THEN REPEAT PTT IN 6HRS(0600). ORDERS NOTED AND CARRIED OUT
[2018-10-24] MEDS: IV NS 0.9% 1,000 ML IV PRN (03:45)
[2018-10-24 04:00] VITALS: BP 92/50
[2018-10-24] MEDS: CLOTRIMAZOLE 10 MG TROCHE MM SCH ×5 (06:08→21:40)
[2018-10-24 06:55] LABS: BASOPHILS # (AUTO) 0.1 /CMM (0.0-0.2); BASOPHILS % (AUTO) 0.6 % (0.0-2.0); HEMATOCRIT 34 % (33-45); HEMOGLOBIN 11.4 g/dL (11.5-14.8); LYMPHOCYTES # (AUTO) 1.6 /CMM (0.8-4.8); LYMPHOCYTES % (AUTO) 7.4 % (20.0-44.0); MEAN CORPUSCULAR HGB CONC 33 g/dl (31.0-36.0); MEAN CORPUSCULAR VOLUME 91 fL (82-100); MONOCYTES # (AUTO) 1.8 /CMM (0.1-1.30); MONOCYTES % (AUTO) 8.3 % (2.0-12.0); NEUTROPHILS # (AUTO) 17.8 /CMM (1.8-8.9); NEUTROPHILS % (AUTO) 82.7 % (43.0-81.0); PLATELET COUNT (AUTO) 224 /CMM (150-450); RED BLOOD CELL COUNT(AUTO) 3.76 MIL/uL (4.0-5.2); WHITE BLOOD COUNT (AUTO) 21.5 K/uL (4.3-11.0)
--- NOTE | 2018-10-24 07:24 | NUR ---
RN NOTES PT IN STABLE CONDITION. ALL NEEDS ANTICIPATED. STILL PENDING RESULT FOR PTT. ENDORSED TO AM SHIFT RN TO FOLLOW UP AND FOR VIVEK
[2018-10-24 07:28] LABS: BAND % (MANUAL) 1 % (0.0-5.0); CALCIUM, SERUM 7.3 mg/dL (8.5-10.1); CARBON DIOXIDE 21 mmol/L (21-32); CHLORIDE 95 mmol/L (98-107); CREATININE 2.3 mg/dL (0.6-1.3); EOSINOPHILS % (MANUAL) 2 % (0-4); GLUCOSE 103 mg/dL (74-106); LYMPHOCYTES % (MANUAL) 3 % (16-48); MAGNESIUM 2.5 mg/dL (1.8-2.4); MONOCYTES % (MANUAL) 9 % (0-11.0); NEUTROPHILS % (MANUAL) 84 (42-76); PHOSPHORUS 4.9 mg/dL (2.5-4.9); POTASSIUM 4.1 mmol/L (3.5-5.1); SODIUM SERUM 127 mmol/L (136-145); UREA NITROGEN, BLOOD 71 mg/dL (7-18)
[2018-10-24 07:29] LABS: METAMYELOCYTES % 1 % (0-0)
--- NOTE | 2018-10-24 07:40 | NUR ---
dr. mccoy evaluated patient,relayed and reviewed heparin drip and persistent ptt elevated results.dicussed protocol,per dr. mccoy hold heparin for two hours and rechecked ptt in 6 hours.
[2018-10-24 07:58] LABS: URIC ACID 10.7 mg/dL (2.6-7.2)
[2018-10-24 08:00] VITALS: BP 95/57
[2018-10-24] MEDS: DOCUSATE SODIUM 100 MG CAPSULE PO SCH (09:13)
[2018-10-24] MEDS: FAMOTIDINE/PF INJ 20 MG/2 ML VIAL IV SCH ×2 (09:14→21:39)
[2018-10-24] MEDS: NYSTATIN TOP POWDER 15 GM BOTTLE TP SCH ×2 (09:15→17:40)
[2018-10-24 12:00] VITALS: BP 96/56
--- NOTE | 2018-10-24 12:04 | NUR ---
discussed with pharmacist EVER heparin drip and ptt results ,will ff. dr. bo orders and will make sure repeat ptt level drawn on arm with no iv,facilitated to lab.pt. no s/s of acute bleeding.will continue to monitor.
[2018-10-24] MEDS ORDERED: PHENOL/SODIUM PHENOLATE 1 BOTTLE MM PRN (14:00)
[2018-10-24] MEDS ORDERED: LACTULOSE 10 G/15 ML UDC (PYXIS) PO PRN (14:30)
[2018-10-24] MEDS: MICAFUNGIN SODIUM 100 MG in IV NS 0.9% 100 ML IV SCH (15:12)
[2018-10-24 16:00] VITALS: BP 98/53
[2018-10-24] MEDS: LACTULOSE 10 G/15 ML UDC (PYXIS) PO SCH (17:40)
--- NOTE | 2018-10-24 17:55 | NUR ---
RN NOTE RECEIVED REPORT FROM LAB THAT APTT IX >170 SEC, HEPARIN HELD AND MD NOTIFIED, PER HER TO HOLD HEPARIN FOR 4 HR, AND RECHECK APTT IN 4HR AND LET MD KNOW AND FOLLOW THE PROTOCOL. NO S/S OF BLEEDING NOTED. VS STABLE, WILL CARRY OUT AND ENDORSE TO ASSOCIATE APPLICATION DEVELOPER.
[2018-10-24 20:00] VITALS: BP 93/53
--- NOTE | 2018-10-24 20:00 | NUR ---
CARMEN RN NOTES RECEIVED PT IN BED, ALERT AND VERBALLY RESPONSIVE. DAUGHTER AT BEDSIDE. ON 2L O2 VIA NC, NO SOB NOTED. L HAND G22 IV LINE IS PATIENT AND INTACT. WAITING FOR PTT @2100. F/C INTACT AND IN PLACED, DRAINING BY GRAVITY. PATIENT IS COMPLAINING OF PAIN ON HER LEFT ARM AND ASKED IV LINE TO BE REMOVED. HOB ELEVATED. SAFETY MEASURES AND ASPIRATION PRECAUTION IN PLACED. CALL LIGHT WITHIN EASY REACH. WILL CONT TO MONITOR.
[2018-10-24] MEDS: CEFTRIAXONE 1 G in IV D5W 50 ML IV SCH (21:39)
--- NOTE | 2018-10-24 21:40 | NUR ---
CARMEN RN NOTES PATIENT IS REFUSING IV MEDICATIONS DUE TO LEFT ARM PAIN 10/10 AND ROCEPHIN IV HAS NOT BEEN ADMINISTERED SCHEDULED AT 2100. WILL TRY TO START NEW IV LINE TO BE ABLE TO ADMINISTER IV MEDICATIONS. AXLE BEARING POLISHER CARLEEN AND CLINIC RECEPTIONIST JOVITA INFORMED ABOUT SITUATION.
--- NOTE | 2018-10-24 22:00 | NUR ---
CARMEN RN NOTES RECEIVED CALL FROM LAB PATIENT'S PTT IS 78.3. WILL CALCULATE AND RESTART HEPARIN DRIP PER PROTOCOL. WILL CONTINUE TO MONITOR PATIENT CLOSELY.
[2018-10-24] MEDS: HYDROCODONE/APAP 5/325MG 1 EACH TABLET PO PRN (22:25)
--- NOTE | 2018-10-24 22:53 | NUR ---
RN NOTES IVELISSE HUSSEIN IS AT THE BEDSIDE . PATIENT IS COMPLAINING OF PAIN 10/10 ON HER LEFT ARM AND DOESN'T WANT CURRENT IV LINE TO BE USED. NEW ORDER OF MIDLINE INSERTION IS IN PLACE BY IVELISSE PAREDES.
[2018-10-25] MEDS: HEPARIN INFUSION/D5W 500 ML IV PRN (00:55)
[2018-10-25] MEDS: CEFTRIAXONE 1 G in IV D5W 50 ML IV SCH (00:58)
--- NOTE | 2018-10-25 01:00 | NUR ---
RN NOTES HEPARIN DRIP HAS BEEN RESTARTED AT 0100@ 650U/H. GEOLOGICAL SURVEY FIELD ASSISTANTRENE CHRISTOPHER.
[2018-10-25 04:00] VITALS: BP 103/56
[2018-10-25] MEDS: IV NS 0.9% 1,000 ML IV PRN ×2 (05:30→21:28)
--- NOTE | 2018-10-25 07:15 | NUR ---
MS RN OPENING NOTES RECEIVED PT LYING ON BED.ALERT/ORIENTED X1 WITH ALBANIAN SPEAKING.ON 2L O2 VIA NC,TOLERATING WELL. NO SOB AND ACUTE DISTRESS NOTED.PT IS ON NPO.MIDLINE IS ON RIGHT UA WITH HEPARIN DRIP ON 650UNIT/HR.AND IV LINE IS ON RIGHT FA G20,IV LINE IS ON RIGHT HAND G20,SL.IV SITE IS CLEAN,DRY AND INTACT.NO INFILTRATION NOTED.NO BOWEL MOVEMENT NOTED.SAFETY IS MAINTAINED AT ALL TIMES.CALL LIGHT IS WITHIN REACH.WILL CONTINUE TO MONITOR THE PT CLOSELY.
[2018-10-25] MEDS: CLOTRIMAZOLE 10 MG TROCHE MM SCH ×5 (07:59→21:16)
[2018-10-25 08:00] VITALS: BP 109/57
[2018-10-25 08:08] LABS: BASOPHILS # (AUTO) 0.1 /CMM (0.0-0.2); BASOPHILS % (AUTO) 0.5 % (0.0-2.0); EOSINOPHILS % (AUTO) 0.3 % (0.0-6.0); HEMATOCRIT 35 % (33-45); HEMOGLOBIN 11.6 g/dL (11.5-14.8); LYMPHOCYTES # (AUTO) 1.1 /CMM (0.8-4.8); LYMPHOCYTES % (AUTO) 4.1 % (20.0-44.0); MEAN CORPUSCULAR HGB CONC 33 g/dl (31.0-36.0); MEAN CORPUSCULAR VOLUME 91 fL (82-100); MONOCYTES # (AUTO) 1.5 /CMM (0.1-1.30); MONOCYTES % (AUTO) 5.8 % (2.0-12.0); NEUTROPHILS # (AUTO) 23.2 /CMM (1.8-8.9); NEUTROPHILS % (AUTO) 89.3 % (43.0-81.0); PLATELET COUNT (AUTO) 211 /CMM (150-450); RED BLOOD CELL COUNT(AUTO) 3.84 MIL/uL (4.0-5.2)
[2018-10-25 08:25] LABS: ALANINE AMINOTRANSFERASE 29 U/L (12-78); ALKALINE PHOSPHATASE 208 U/L (46-116); ASPARTATE AMINOTRANSFERASE 63 U/L (15-37); BILIRUBIN,TOTAL 1.3 mg/dL (0.2-1.0); CALCIUM, SERUM 7.6 mg/dL (8.5-10.1); CARBON DIOXIDE 19 mmol/L (21-32); CHLORIDE 96 mmol/L (98-107); CREATININE 2.3 mg/dL (0.6-1.3); GLUCOSE 102 mg/dL (74-106); MAGNESIUM 2.4 mg/dL (1.8-2.4); PHOSPHORUS 5.6 mg/dL (2.5-4.9); POTASSIUM 4.6 mmol/L (3.5-5.1); SODIUM SERUM 127 mmol/L (136-145); TOTAL PROTEIN, SERUM 5.6 g/dL (6.4-8.2); UREA NITROGEN, BLOOD 67 mg/dL (7-18)
[2018-10-25 08:28] LABS: ALBUMIN 1.4 g/dL (3.4-5.0)
[2018-10-25] MEDS: DOCUSATE SODIUM 100 MG CAPSULE PO SCH (08:49)
[2018-10-25] MEDS: FAMOTIDINE/PF INJ 20 MG/2 ML VIAL IV SCH ×2 (08:49→21:15)
[2018-10-25] MEDS: LACTULOSE 10 G/15 ML UDC (PYXIS) PO SCH (08:49)
--- NOTE | 2018-10-25 08:50 | NUR ---
relayed to dr. lee ptt results w/ new orders left and carried out.heparin held per .
[2018-10-25 09:16] LABS: LYMPHOCYTES % (MANUAL) 4 % (16-48); MONOCYTES % (MANUAL) 6 % (0-11.0); NEUTROPHILS % (MANUAL) 90 (42-76)
--- NOTE | 2018-10-25 09:39 | NUR ---
MS RN NOTES PT HAD BOWEL MOVEMENT WITH NORMAL CONSISTENCY,DR.SANTA PAUL ORDERED TO D/C STOOL FOR C DIFF.NEW ORDERS NOTED AND CARRIED OUT.PT AND FAMILY MADE AWARE.
--- NOTE | 2018-10-25 10:40 | NUR ---
MS RN NOTES ORDERED TO D/C ORTIZ CATHETER,DISCONTINUED AND NO COMPLICATIONS NOTED.FAMILY IS AT BEDSIDE.
[2018-10-25] MEDS: RIVAROXABAN 15 MG TABLET PO SCH ×2 (11:03→21:09)
[2018-10-25] MEDS: NYSTATIN TOP POWDER 15 GM BOTTLE TP SCH ×2 (11:07→17:25)
[2018-10-25 12:00] VITALS: BP 121/66
[2018-10-25] MEDS: MICAFUNGIN SODIUM 100 MG in IV NS 0.9% 100 ML IV SCH (15:23)
[2018-10-25 16:00] VITALS: BP_SYST 103; BP_SYST 119; BP_DIAS 60; BP_DIAS 69
--- NOTE | 2018-10-25 18:50 | NUR ---
MS CADD INSTRUCTOR NOTES PT IS LYING ON BED.SHE IS URINATED AFTER D/C FC,NO COMPLICATIONS NOTED.ON NC 2L O2 VIA NC,NO SOB AND ACUTE DISTRESS NOTED.RESPIRATION IS EVEN AND NON LABORED.IV FLUID IS STILL RUNNING.FAMILY IS AT BEDSIDE.WILL ENDORSE TO NEXT SHIFT RN FOR VIVEK. Addendum: 10/25/18 at 1853 by LINA DE LA CRUZ RN CLARIFIED MS CADD INSTRUCTOR NOTES TO MS RN CLOSING NOTES
[2018-10-25 20:00] VITALS: BP 103/69
--- NOTE | 2018-10-25 20:00 | NUR ---
CARMEN RN NOTES RECEIVED PT IN BED, ALERT AND VERBALLY RESPONSIVE. DAUGHTER AT BEDSIDE. ON 2L O2 VIA NC, NO SOB NOTED. RIGHT UPPER ARM MIDLINE AND RIGHT FOREARM IV LINES ARE PATIENT AND INTACT WITH IV FLUIDS @75 ML/HR. PATIENT IS CONFUSED AND PULLING HER IV LINES . CALLED DEPOSITION REPORTER JOVITA FOR THIS MATTER AND NEW ORDER OF SOFT WRIST RESTRAINT IS IN PLACE. HOB ELEVATED. SAFETY MEASURES AND ASPIRATION PRECAUTION IN PLACE. CALL LIGHT WITHIN EASY REACH. WILL CONT TO MONITOR PATIENT CLOSELY.
[2018-10-26 04:00] VITALS: BP 131/60
[2018-10-26 05:47] LABS: BASOPHILS # (AUTO) 0.1 /CMM (0.0-0.2); BASOPHILS % (AUTO) 0.7 % (0.0-2.0); EOSINOPHILS % (AUTO) 0.8 % (0.0-6.0); HEMATOCRIT 34 % (33-45); LYMPHOCYTES # (AUTO) 1.2 /CMM (0.8-4.8); LYMPHOCYTES % (AUTO) 6.7 % (20.0-44.0); MEAN CORPUSCULAR HGB CONC 33 g/dl (31.0-36.0); MEAN CORPUSCULAR VOLUME 91 fL (82-100); MONOCYTES # (AUTO) 1.2 /CMM (0.1-1.30); MONOCYTES % (AUTO) 6.8 % (2.0-12.0); NEUTROPHILS # (AUTO) 15.1 /CMM (1.8-8.9); PLATELET COUNT (AUTO) 203 /CMM (150-450); RED BLOOD CELL COUNT(AUTO) 3.72 MIL/uL (4.0-5.2); WHITE BLOOD COUNT (AUTO) 17.8 K/uL (4.3-11.0)
[2018-10-26 06:08] LABS: CALCIUM, SERUM 7.7 mg/dL (8.5-10.1); CARBON DIOXIDE 22 mmol/L (21-32); CHLORIDE 98 mmol/L (98-107); CREATININE 2.2 mg/dL (0.6-1.3); GLUCOSE 86 mg/dL (74-106); MAGNESIUM 2.4 mg/dL (1.8-2.4); PHOSPHORUS 5.4 mg/dL (2.5-4.9); POTASSIUM 4.2 mmol/L (3.5-5.1); SODIUM SERUM 129 mmol/L (136-145); UREA NITROGEN, BLOOD 71 mg/dL (7-18)
--- NOTE | 2018-10-26 06:31 | NUR ---
RN CLOSING NOTES PATIENT IS IN THE BED, COULD NOT SLEEP ALL NIGHT, NO CHEST PAIN, NO DISCOMFORT AT THIS TIME. PATIENT IS MORE ALTERED THAN YESTERDAY , TALKING TO HERSELF ANS SEEING PEOPLE IN THE EMPTY ROOM. RIGHT FOREARM PERIPHERAL IV AND RIGHT UPPER ARM MIDLINE ARE PATIENT ANT INTACT WITH IV FLUIDS NS 0.9% @75ML/HR. PATIENT IS ON 2L O2 VIA NC WITH SPO2 OF >95%. PATIENT PLASCENCIA SOFT BILATERAL WRIST RESTRAINT. ALL SAFETY MEASURES ARE IMPLEMENTED, BED IN LOW, LOCKED POSITION, CALL LIGHT IN REACH. WILL INDORSE PATIENT CARE TO AM RN FOR UNIX DEVELOPER.
[2018-10-26] MEDS: CLOTRIMAZOLE 10 MG TROCHE MM SCH ×5 (06:49→20:34)
[2018-10-26 08:00] VITALS: BP 114/69
[2018-10-26] MEDS: DOCUSATE SODIUM 100 MG CAPSULE PO SCH (09:00)
[2018-10-26] MEDS: FAMOTIDINE/PF INJ 20 MG/2 ML VIAL IV SCH ×2 (09:20→20:33)
[2018-10-26] MEDS: RIVAROXABAN 15 MG TABLET PO SCH ×2 (09:21→16:51)
[2018-10-26] MEDS: LACTULOSE 10 G/15 ML UDC (PYXIS) PO SCH ×2 (09:23→16:47)
[2018-10-26] MEDS: NYSTATIN TOP POWDER 15 GM BOTTLE TP SCH ×2 (09:24→16:51)
--- NOTE | 2018-10-26 09:40 | NUR ---
MS RN NOTE RECEIVED PATIENT IN BED ALERT WITH CONFUSION ON 2L NS NO SOB NOTED , RT UPPER ARM MIDLINE IN PLACE ON IVF ORDERED ,BED IN LOWEST AND LOCKED POSITION , FAMILY AT BEDSIDE ABDOMENS STILL DISTENDED,PLAN OF CARE DISCUSSED WITH FAMILY ,RESPIRATION UNLABORED AT THIS TIME, DIETARY CONSULT ORDERED
[2018-10-26] MEDS: IV NS 0.9% 1,000 ML IV PRN ×2 (10:35→22:36)
--- NOTE | 2018-10-26 11:56 | NUR ---
MS RN NOTE SPOKE WIT DR RITCHIE NOTIFIED THAT ABDOMEN STILL DISTENDED AND CHEST CONGESTION NOTED WITH OCCASIONAL COUGHING, STATED THAT WILL CHECK PATENT SOON , ALSO SPOKE WITH JERAD LAST PULLER NOTIFIED THAT NA 189 CONT IVF ORDERED WILL F\U
--- NOTE | 2018-10-26 12:35 | NUR ---
MS RN NOTE CONSENT FOR US THORACENTESIS DONE ORDERED
--- NOTE | 2018-10-26 13:48 | NUR ---
RN NOTE PT AT BEDSIDE , ABLE TO SIT AT EDGE OF BED ,PER UST TECH WILL BE DOING US THORACENTESIS TOMORROW DR RITCHIE NOTIFIED Addendum: 10/26/18 at 1414 by JESSENIA PAIGE RN FAMILY AT BESIDE NOT IN DISTRESS
[2018-10-26] MEDS: MICAFUNGIN SODIUM 100 MG in IV NS 0.9% 100 ML IV SCH (15:14)
[2018-10-26 16:00] VITALS: BP 115/68
[2018-10-26 16:25] VITALS: BP 115/68
--- NOTE | 2018-10-26 18:40 | NUR ---
MS RN NOTE HOLD BELÉN PATIENT WILL HAVE PARACENTESIS TOMORROW, FED BY FAMILY , ALL NEEDS ATTENDED , WILL CONT TO MONITOR CLOSELY
[2018-10-26 20:00] VITALS: BP 111/73
--- NOTE | 2018-10-26 21:00 | NUR ---
RN Notes family concerned about patient being confused. Explained to them patient was admitted as AMS; ammonia level still elevated but family stated patient became more confuse after norco was given which was 3 days ago. Will mention to senior erp consultant but will also mention to day shift their concern for rounding MD. Patient continue to moan but family does not want any sedating meds; with oral tylenol but per family and RN patient unable to swallow today. Spoke to Rakesh Castaneda about their concern. Came to talk to the family(grand daughters) and switch tylenol to suppository.
[2018-10-26] MEDS ORDERED: ACETAMINOPHEN 650 MG/SUPP.RECT RC PRN (22:00)
[2018-10-27 04:00] VITALS: BP 109/62
--- NOTE | 2018-10-27 04:48 | NUR ---
RN NOTES TYLENOL SUPPOSITORY ADMINISTERED WITH RELIEF. WILL CONTINUE TO MONITOR.
[2018-10-27 06:54] LABS: BASOPHILS # (AUTO) 0.1 /CMM (0.0-0.2); BASOPHILS % (AUTO) 0.6 % (0.0-2.0); EOSINOPHILS % (AUTO) 1.1 % (0.0-6.0); HEMATOCRIT 30 % (33-45); HEMOGLOBIN 9.9 g/dL (11.5-14.8); LYMPHOCYTES # (AUTO) 0.8 /CMM (0.8-4.8); LYMPHOCYTES % (AUTO) 6.8 % (20.0-44.0); MEAN CORPUSCULAR HGB CONC 33 g/dl (31.0-36.0); MEAN CORPUSCULAR VOLUME 91 fL (82-100); MONOCYTES # (AUTO) 0.8 /CMM (0.1-1.30); MONOCYTES % (AUTO) 6.6 % (2.0-12.0); NEUTROPHILS # (AUTO) 9.9 /CMM (1.8-8.9); NEUTROPHILS % (AUTO) 84.9 % (43.0-81.0); PLATELET COUNT (AUTO) 169 /CMM (150-450); WHITE BLOOD COUNT (AUTO) 11.7 K/uL (4.3-11.0)
--- NOTE | 2018-10-27 07:00 | NUR ---
MS RN NOTES RECEIVED PT IN BED, HIGH FOWLERS POSITION. PT YELLING OUT. CONFUSED. ON BL SOFT WRIST RESTRAINTS. DAUGHTER AT BEDSIDE. ABD DISTENDED ACTIVE BS. HR REGULAR. LUNG SOUNDS CLEAR TO AUSCULTATION. PT ON 2L NC. TOLERATING WELL. PICC LINE C/D/P/I. IV FLUIDS RUNNING. BED IN LOCKED/LOWEST POSITION. CALL LIGHT IN REACH. WILL CONT TO MONITOR.
[2018-10-27 07:07] LABS: CALCIUM, SERUM 7.1 mg/dL (8.5-10.1); CARBON DIOXIDE 18 mmol/L (21-32); CHLORIDE 103 mmol/L (98-107); CREATININE 1.9 mg/dL (0.6-1.3); GLUCOSE 73 mg/dL (74-106); MAGNESIUM 2.3 mg/dL (1.8-2.4); PHOSPHORUS 4.9 mg/dL (2.5-4.9); POTASSIUM 4.3 mmol/L (3.5-5.1); SODIUM SERUM 131 mmol/L (136-145); UREA NITROGEN, BLOOD 67 mg/dL (7-18)
[2018-10-27 08:00] VITALS: BP 123/77
[2018-10-27] MEDS: CLOTRIMAZOLE 10 MG TROCHE MM SCH ×5 (08:01→21:52)
[2018-10-27] MEDS: RIVAROXABAN 15 MG TABLET PO SCH ×2 (09:00→16:19)
[2018-10-27] MEDS: FAMOTIDINE/PF INJ 20 MG/2 ML VIAL IV SCH ×2 (09:24→21:52)
[2018-10-27] MEDS: LACTULOSE 10 G/15 ML UDC (PYXIS) PO SCH ×2 (09:24→16:19)
[2018-10-27] MEDS: DOCUSATE SODIUM 100 MG CAPSULE PO SCH (09:24)
[2018-10-27] MEDS: NYSTATIN TOP POWDER 15 GM BOTTLE TP SCH ×2 (09:40→16:21)
[2018-10-27] MEDS ORDERED: FUROSEMIDE 40 MG/4 ML VIAL IV ONE (15:30)
[2018-10-27] MEDS: ALBUMIN 25% 25 GM in PREMIX 1 EA IV SCH (15:57)
[2018-10-27 16:00] VITALS: BP 100/64
[2018-10-27] MEDS: RIFAXIMIN 550 MG TABLET PO SCH ×2 (16:18→17:47)
[2018-10-27 17:24] VITALS: BP 100/64
--- NOTE | 2018-10-27 19:02 | NUR ---
MS RN CLOSING NOTES PT IN BED, FAMILY AT BEDSIDE. ON 2L NC. NO S/SX OF RESP DISTRESS. BED IN LOCKED/LOWEST POSITION. CALL LIGHT IN REACH. ENDORSED TO PM SHIFT FOR VIVEK.
[2018-10-27 20:00] VITALS: BP 107/57
--- NOTE | 2018-10-27 20:00 | NUR ---
CARMEN RN NOTES RECEIVED PT IN BED, ALERT AND VERBALLY NOT RESPONSIVE. DAUGHTER IS AT THE BEDSIDE. PATIENT IS ON 2L O2 VIA NC, NO SOB NOTED. RIGHT UPPER ARM MIDLINE AND RIGHT FOREARM IV LINES ARE PATIENT AND INTACT. PATIENT IS CONFUSED AND PULLING HER IV LINES AND SOFT WRIST RESTRAINT IS IN PLACE. HOB ELEVATED. SAFETY MEASURES AND ASPIRATION PRECAUTION IN PLACE. CALL LIGHT WITHIN EASY REACH. WILL CONT TO MONITOR PATIENT CLOSELY.
[2018-10-28] MEDS: ALBUMIN 25% 25 GM in PREMIX 1 EA IV SCH (03:39)
[2018-10-28 04:00] VITALS: BP 111/62
[2018-10-28 06:27] LABS: BASOPHILS # (AUTO) 0.1 /CMM (0.0-0.2); EOSINOPHILS % (AUTO) 1.2 % (0.0-6.0); HEMATOCRIT 27 % (33-45); LYMPHOCYTES # (AUTO) 0.6 /CMM (0.8-4.8); LYMPHOCYTES % (AUTO) 7.5 % (20.0-44.0); MEAN CORPUSCULAR HGB CONC 34 g/dl (31.0-36.0); MEAN CORPUSCULAR VOLUME 92 fL (82-100); MONOCYTES # (AUTO) 0.5 /CMM (0.1-1.30); MONOCYTES % (AUTO) 6.6 % (2.0-12.0); NEUTROPHILS # (AUTO) 6.2 /CMM (1.8-8.9); NEUTROPHILS % (AUTO) 83.7 % (43.0-81.0); PLATELET COUNT (AUTO) 103 /CMM (150-450); RED BLOOD CELL COUNT(AUTO) 2.88 MIL/uL (4.0-5.2); WHITE BLOOD COUNT (AUTO) 7.4 K/uL (4.3-11.0)
[2018-10-28 06:42] LABS: ALANINE AMINOTRANSFERASE 29 U/L (12-78); ALBUMIN 1.5 g/dL (3.4-5.0); ALKALINE PHOSPHATASE 148 U/L (46-116); ASPARTATE AMINOTRANSFERASE 62 U/L (15-37); BILIRUBIN,DIRECT 0.5 mg/dL (0.0-0.2); BILIRUBIN,TOTAL 1.2 mg/dL (0.2-1.0); CALCIUM, SERUM 7.8 mg/dL (8.5-10.1); CARBON DIOXIDE 23 mmol/L (21-32); CHLORIDE 102 mmol/L (98-107); CREATININE 2.1 mg/dL (0.6-1.3); GLUCOSE 100 mg/dL (74-106); POTASSIUM 3.6 mmol/L (3.5-5.1); SODIUM SERUM 130 mmol/L (136-145); TOTAL PROTEIN, SERUM 5.2 g/dL (6.4-8.2); UREA NITROGEN, BLOOD 71 mg/dL (7-18)
--- NOTE | 2018-10-28 06:50 | NUR ---
RN CLOSING NOTES PATIENT IS IN THE BED, NO CHEST PAIN, NO DISCOMFORT AT THIS TIME. NO ACUTE CHANGES NOTED DURING MY SHIFT. RIGHT FOREARM PERIPHERAL IV AND RIGHT UPPER ARM MIDLINE ARE PATIENT ANT INTACT. PATIENT IS ON 2L O2 VIA NC WITH SPO2 OF >95%. PATIENT PLASCENCIA SOFT BILATERAL WRIST RESTRAINT. ALL SAFETY MEASURES ARE IMPLEMENTED, BED IN LOW, LOCKED POSITION, CALL LIGHT IN REACH. WILL INDORSE PATIENT CARE TO AM RN FOR MAJOR ASSEMBLER.
[2018-10-28] MEDS: CLOTRIMAZOLE 10 MG TROCHE MM SCH ×2 (07:18→11:38)
--- NOTE | 2018-10-28 07:30 | NUR ---
RN NOTES PATIENT RECEIVED ASLEEP EASILY AROUSABLE DURING CARE, CONFUSED RESPIRATIONS EVEN AND UNLABORED, DENIES ANY PAIN OR DISCOMFORT AT THIS TIME. IV ACCESS PATENT AND INTACT NO REDNESS OR INFILTRATION NOTED. KEPT CLEAN DRY AND COMFORTABLE CALL LIGHT WITHIN EASY REACH WILL CONTINUE TO MONITOR
[2018-10-28 08:00] VITALS: BP 103/57
[2018-10-28 08:24] LABS: SERUM AMMONIA 28 umol/L (11-32)
[2018-10-28] MEDS: RIVAROXABAN 15 MG TABLET PO SCH ×2 (09:00→17:00)
[2018-10-28] MEDS: DOCUSATE SODIUM 100 MG CAPSULE PO SCH (09:00)
[2018-10-28] MEDS: LACTULOSE 10 G/15 ML UDC (PYXIS) PO SCH ×2 (09:15→17:51)
[2018-10-28] MEDS: RIFAXIMIN 550 MG TABLET PO SCH ×2 (09:15→17:50)
[2018-10-28] MEDS: FAMOTIDINE/PF INJ 20 MG/2 ML VIAL IV SCH ×2 (09:15→21:14)
[2018-10-28] MEDS: NYSTATIN TOP POWDER 15 GM BOTTLE TP SCH ×2 (09:26→17:53)
[2018-10-28] MEDS ORDERED: ALBUTEROL FS 2.5 MG/0.5 ML VIAL.NEB NEB PRN (11:00)
--- NOTE | 2018-10-28 11:00 | NUR ---
RN NOTES PT SEEN EXAMINED BY PEDIATRIC PHYSICIAN WITH NEW ORDERS
[2018-10-28] MEDS ORDERED: FUROSEMIDE 40 MG/4 ML VIAL IV ONE ×2 (14:00→17:30)
[2018-10-28 16:00] VITALS: BP_SYST 132; BP_SYST 91; BP_DIAS 58; BP_DIAS 70
[2018-10-28] MEDS: SPIRONOLACTONE 25 MG TABLET PO SCH (17:51)
--- NOTE | 2018-10-28 19:40 | NUR ---
MS1 RN NOTES RECEIVED ON BED AWAKE,ALERT X1,CONFUSED,DAUGHTER AT BEDSIDE.DIAPERED,WITH RIGHT UPPER ARM,RFA MIDLINE FOR MEDS.WITH GENERALIZED EDEMA +4 ON BLE,ELEVATED ON PILLOWS,REPOSITION PER PROTOCOL,CALL LIGHT IN REACH,NEEDS ANTICIPATED.
--- NOTE | 2018-10-28 19:40 | NUR ---
RN NOTES PATIENT ASLEEP EASILY AROUSABLE DURING CARE, CONFUSED RESPIRATIONS EVEN AND UNLABORED, DENIES ANY PAIN OR DISCOMFORT AT THIS TIME. IV ACCESS PATENT AND INTACT NO REDNESS OR INFILTRATION NOTED. KEPT CLEAN DRY AND COMFORTABLE CALL LIGHT WITHIN EASY REACH WILL CONTINUE TO MONITOR, ENDORSED TO NEXT SHIFT FOR CONTINUITY OF CARE.
[2018-10-28 20:00] VITALS: BP 114/58
--- NOTE | 2018-10-28 20:00 | NUR ---
MS1 RN NOTES DR GONZALES IN THE ROOM TALKING TO FAMILY MEMBER,EXPLAINING RISK AND BENEFITS REGARDING BONE MARROW BIOPSY DAUGHTER WANTS TO TALK FIRST WITH OTHER FAMILY MEMBER REGARDING THE PROCEDURE.
[2018-10-28] MEDS: ACETAMINOPHEN 650 MG/SUPP.RECT RC PRN (21:23)
--- NOTE | 2018-10-28 21:23 | NUR ---
MS1 RN NOTES MEDICATED WITH TYLENOL 650MG SUPPOSITORY PER DAUGHTER REQUEST FOR MILD PAIN
[2018-10-29] VITALS: BP 114/58
[2018-10-29 04:00] VITALS: BP 101/54
[2018-10-29 06:34] LABS: BASOPHILS # (AUTO) 0.1 /CMM (0.0-0.2); BASOPHILS % (AUTO) 0.7 % (0.0-2.0); EOSINOPHILS % (AUTO) 1.2 % (0.0-6.0); HEMATOCRIT 26 % (33-45); HEMOGLOBIN 8.7 g/dL (11.5-14.8); LYMPHOCYTES # (AUTO) 0.6 /CMM (0.8-4.8); LYMPHOCYTES % (AUTO) 7.8 % (20.0-44.0); MEAN CORPUSCULAR HGB CONC 33 g/dl (31.0-36.0); MEAN CORPUSCULAR VOLUME 91 fL (82-100); MONOCYTES # (AUTO) 0.6 /CMM (0.1-1.30); MONOCYTES % (AUTO) 8.1 % (2.0-12.0); NEUTROPHILS # (AUTO) 5.9 /CMM (1.8-8.9); NEUTROPHILS % (AUTO) 82.2 % (43.0-81.0); PLATELET COUNT (AUTO) 108 /CMM (150-450); RED BLOOD CELL COUNT(AUTO) 2.85 MIL/uL (4.0-5.2); WHITE BLOOD COUNT (AUTO) 7.2 K/uL (4.3-11.0)
[2018-10-29 06:58] LABS: CALCIUM, SERUM 7.9 mg/dL (8.5-10.1); CARBON DIOXIDE 21 mmol/L (21-32); CHLORIDE 102 mmol/L (98-107); CREATININE 1.9 mg/dL (0.6-1.3); GLUCOSE 87 mg/dL (74-106); POTASSIUM 3.6 mmol/L (3.5-5.1); SODIUM SERUM 134 mmol/L (136-145); UREA NITROGEN, BLOOD 72 mg/dL (7-18)
--- NOTE | 2018-10-29 07:05 | NUR ---
MS RN OPENING NOTES RECEIVED PT ON BED AWAKE, ALERT X1, CONFUSED, DAUGHTER AT BEDSIDE. NO SOB NOTED. RESPIRATIONS EVEN AND UNLABORED. ON DIAPERED. WITH RIGHT UPPER ARM, RFA MIDLINE FOR MEDS. WITH GENERALIZED EDEMA +4 ON BLE, ELEVATED ON PILLOWS, WILL REPOSITION PER PROTOCOL, CALL LIGHT WITHIN REACH, SIDE RAILS UP X2, BED LOCKED AND IN LOWEST POSITION. HOB ELEVATED. WILL MONITOR PT THROUGHOUT SHIFT.
--- NOTE | 2018-10-29 07:07 | NUR ---
MS1 RN NOTES SLEPT WITH INTERVALS,SCREAMS ON AND OFF,HAD BM,DAUGHTER AT BEDSIDE.BONE MARROW STILL PENDING AWAITING OTHER FAMILY TO DECIDE.IN NO ACUTE DISTRESS.WILL ENDORSE TO DAY NURSE FOR VIVEK.
[2018-10-29 08:00] VITALS: BP 104/59
[2018-10-29] MEDS: RIVAROXABAN 15 MG TABLET PO SCH ×2 (09:00→17:00)
[2018-10-29] MEDS: RIFAXIMIN 550 MG TABLET PO SCH ×2 (09:03→17:40)
[2018-10-29] MEDS: DOCUSATE SODIUM 100 MG CAPSULE PO SCH (09:03)
[2018-10-29] MEDS: SPIRONOLACTONE 25 MG TABLET PO SCH (09:03)
[2018-10-29] MEDS: FAMOTIDINE/PF INJ 20 MG/2 ML VIAL IV SCH ×2 (09:04→22:02)
[2018-10-29] MEDS: LACTULOSE 10 G/15 ML UDC (PYXIS) PO SCH ×2 (09:04→17:00)
[2018-10-29] MEDS: NYSTATIN TOP POWDER 15 GM BOTTLE TP SCH ×2 (09:10→17:39)
[2018-10-29 16:00] VITALS: BP 92/56
--- NOTE | 2018-10-29 18:45 | NUR ---
MS RN NOTES PATIENT'S DAUGHTER AGREED TO DO BONE MARROW BIOPSY. MD MADE AWARE. AWAITING FOR RESPONSE.
--- NOTE | 2018-10-29 19:00 | NUR ---
MS RN NOTES PT'S DAUGHTER NICOL BETHEA SIGNED THE BONE MARROW BIOPSY AND ASPIRATION CONSENT.
--- NOTE | 2018-10-29 19:10 | NUR ---
MS RN CLOSING NOTES PT ON BED AWAKE, ALERT X1, CONFUSED, DAUGHTER AT BEDSIDE. NO SOB NOTED. RESPIRATIONS EVEN AND UNLABORED. ON DIAPER. WITH RIGHT UPPER ARM, RFA MIDLINE FOR MEDS. WITH GENERALIZED EDEMA +3 ON BLE, ELEVATED ON PILLOWS, REPOSITIONED PER PROTOCOL, CALL LIGHT WITHIN REACH, SIDE RAILS UP X2, BED LOCKED AND IN LOWEST POSITION. HOB ELEVATED. ALL NEEDS WERE MET. ALL MD ORDERS ATTENDED. NO ACUTE CHANGES THROUGHOUT SHIFT. ENDORSED TO FACE HARDENER NURSE FOR VIVEK.
[2018-10-29 20:00] VITALS: BP 94/52
[2018-10-29 20:52] VITALS: BP 94/52
[2018-10-30 04:00] VITALS: BP 100/59
--- NOTE | 2018-10-30 06:20 | NUR ---
RN NOTES NO ACUTE CHANGES DURING MY SHIFT. PATIENT IS STABLE, A/A/OX1, CONFUSED. ALL NEEDS ARE ANTICIPATED, ALL SAFETY MEASURES ARE IN PLACE. WILL ENDORCE PATIENT CARE TO AM SHIFT RENE SANDERS FOR WEB SYSTEMS DEVELOPER.
[2018-10-30 06:27] LABS: BASOPHILS # (AUTO) 0.1 /CMM (0.0-0.2); BASOPHILS % (AUTO) 0.9 % (0.0-2.0); EOSINOPHILS % (AUTO) 1.1 % (0.0-6.0); HEMATOCRIT 27 % (33-45); HEMOGLOBIN 8.8 g/dL (11.5-14.8); LYMPHOCYTES # (AUTO) 0.6 /CMM (0.8-4.8); MEAN CORPUSCULAR HGB CONC 33 g/dl (31.0-36.0); MEAN CORPUSCULAR VOLUME 91 fL (82-100); MONOCYTES # (AUTO) 0.7 /CMM (0.1-1.30); MONOCYTES % (AUTO) 9.2 % (2.0-12.0); NEUTROPHILS # (AUTO) 6.5 /CMM (1.8-8.9); NEUTROPHILS % (AUTO) 80.8 % (43.0-81.0); PLATELET COUNT (AUTO) 117 /CMM (150-450); RED BLOOD CELL COUNT(AUTO) 2.93 MIL/uL (4.0-5.2)
[2018-10-30 06:51] LABS: SERUM AMMONIA 43 umol/L (11-32)
[2018-10-30 06:55] LABS: CALCIUM, SERUM 8.2 mg/dL (8.5-10.1); CARBON DIOXIDE 21 mmol/L (21-32); CHLORIDE 101 mmol/L (98-107); CREATININE 1.9 mg/dL (0.6-1.3); GLUCOSE 107 mg/dL (74-106); POTASSIUM 3.7 mmol/L (3.5-5.1); SODIUM SERUM 132 mmol/L (136-145); UREA NITROGEN, BLOOD 71 mg/dL (7-18)
[2018-10-30 08:00] VITALS: BP 105/74
--- NOTE | 2018-10-30 08:00 | NUR ---
RN NOTES RECEIVED PATIENT IN THE BED A/O X2 IRISH SPEAKER FEMALE WITH CONFUSION. ON O2 2LNC, PATIENT HAS NO ACUTE RESPIRATORY DISTRESS, UNLABORED, V/S TAKEN STABLE, PATIENT HAS DISTENDED ABDOMEN PAINFUL WHEN TOUCHED. PATIENT FEEL WEAK, KEEP HOB ELEVATED, ASSIST TURN AND REPOSTION Q 2 HR. PATIENT REDIRECTABLE. ASIST TURN AND REPOSTION Q 2 HR. SCHEDULED MEDICATION ADMINISTERED. RIGHT UA MIDLINE INTACT. PATIENT POOR EATER. DAUGHTER NEXT TO THE BED, ASSIST TURN AND REPOSTION Q 2 HR. CALL LIGHT WITHIN TO REACH, SAFETY PRECAUTION MONITORING ALL THE TIME.
[2018-10-30] MEDS: RIVAROXABAN 15 MG TABLET PO SCH (08:21)
--- NOTE | 2018-10-30 10:00 | NUR ---
RN NOTES PATIENT WITH PT AT THIS TIME, SITTING IN THE CHAIR. NO ACUTE RESPIRATORY DISTRESS. CONTINUED MONITORING.
[2018-10-30] MEDS: DOCUSATE SODIUM 100 MG CAPSULE PO SCH (10:49)
[2018-10-30] MEDS: FAMOTIDINE/PF INJ 20 MG/2 ML VIAL IV SCH ×2 (10:49→21:19)
[2018-10-30] MEDS: LACTULOSE 10 G/15 ML UDC (PYXIS) PO SCH ×2 (10:49→16:47)
[2018-10-30] MEDS: SPIRONOLACTONE 25 MG TABLET PO SCH (10:49)
[2018-10-30] MEDS: RIFAXIMIN 550 MG TABLET PO SCH ×2 (10:49→16:47)
[2018-10-30] MEDS: NYSTATIN TOP POWDER 15 GM BOTTLE TP SCH ×2 (10:56→16:48)
[2018-10-30 12:55] VITALS: BP 105/74
[2018-10-30 13:08] LABS: BETA-2 MICROGLOBULIN, SERUM 5.8 mg/L (0.6-2.4)
--- NOTE | 2018-10-30 13:20 | NUR ---
RN NOTES PATIENT RESTING AT THIS TIME, STABLE. HOB ELEVATED. CONTINUED MONITORING.
[2018-10-30 16:00] VITALS: BP 100/60
--- NOTE | 2018-10-30 17:00 | NUR ---
RN NOTES SCHEDULED MEDICATION ADMINISTERED, V/S STABLE. DAUGHTER NEXT TO THE BED.
--- NOTE | 2018-10-30 18:50 | NUR ---
RN NOTES PER BONE MARROW PROCEDURE DONE, SPECIMEN TAKEN TO THE LAB FOR PATHOLOGY, PATIENT TOLERATED PROCEDURE WELL, NO BLEEDING, PATIENT LYING IN THE BACK. REFUSED PAIN AT THIS TIME. MONITORING FOR BLEEDING. PATIENT STABLE, DAUGHTER ASSISTING PATIENT TO EAT. CALL LIGHT WITHIN TO REACH. ENDORSED ONCOMING NURSE FOR PLAN OF CARE.
--- NOTE | 2018-10-30 19:48 | NUR ---
RN NOTES RECEIVED PATIENT IN THE BED A/O X1 SAO TOMEAN SPEAKER FEMALE WITH CONFUSION. ON O2 2LNC, PATIENT HAS NO ACUTE RESPIRATORY DISTRESS, UNLABORED, V/S TAKEN STABLE, PATIENT HAS DISTENDED ABDOMEN PAINFUL WHEN TOUCHED. PATIENT FEEL WEAK, KEEP HOB ELEVATED, ASSIST TURN AND REPOSITION Q 2 HR. PATIENT RE DIRECTABLE. ASIST TURN AND REPOSITION Q 2 HR. SCHEDULED MEDICATION ADMINISTERED. RIGHT UA MIDLINE INTACT. PATIENT POOR EATER. DAUGHTER DAUGHTER AT BEDSIDE, ASSISTED TURN AND REPOSITIONING Q 2 HR. CALL LIGHT WITHIN REACH, ON SAFETY PRECAUTION MONITORING ALL THE TIME.WILL MONITOR ACCORDINGLY.
[2018-10-30 20:45] VITALS: BP 117/70
[2018-10-30 20:45] LABS: BASOPHILS # (AUTO) 0.1 /CMM (0.0-0.2); BASOPHILS % (AUTO) 0.9 % (0.0-2.0); EOSINOPHILS % (AUTO) 0.6 % (0.0-6.0); HEMATOCRIT 32 % (33-45); HEMOGLOBIN 10.6 g/dL (11.5-14.8); LYMPHOCYTES # (AUTO) 0.8 /CMM (0.8-4.8); LYMPHOCYTES % (AUTO) 7.6 % (20.0-44.0); MEAN CORPUSCULAR HGB CONC 33 g/dl (31.0-36.0); MEAN CORPUSCULAR VOLUME 92 fL (82-100); MONOCYTES # (AUTO) 0.8 /CMM (0.1-1.30); MONOCYTES % (AUTO) 7.9 % (2.0-12.0); NEUTROPHILS # (AUTO) 8.3 /CMM (1.8-8.9); PLATELET COUNT (AUTO) 123 /CMM (150-450); RED BLOOD CELL COUNT(AUTO) 3.47 MIL/uL (4.0-5.2)
[2018-10-31 04:37] VITALS: BP 85/55
[2018-10-31 06:25] LABS: BASOPHILS # (AUTO) 0.1 /CMM (0.0-0.2); BASOPHILS % (AUTO) 1.1 % (0.0-2.0); EOSINOPHILS % (AUTO) 0.8 % (0.0-6.0); HEMATOCRIT 28 % (33-45); HEMOGLOBIN 9.1 g/dL (11.5-14.8); LYMPHOCYTES # (AUTO) 0.7 /CMM (0.8-4.8); LYMPHOCYTES % (AUTO) 8.3 % (20.0-44.0); MEAN CORPUSCULAR HGB CONC 33 g/dl (31.0-36.0); MEAN CORPUSCULAR VOLUME 91 fL (82-100); MONOCYTES # (AUTO) 0.7 /CMM (0.1-1.30); MONOCYTES % (AUTO) 8.5 % (2.0-12.0); NEUTROPHILS # (AUTO) 6.5 /CMM (1.8-8.9); NEUTROPHILS % (AUTO) 81.3 % (43.0-81.0); PLATELET COUNT (AUTO) 110 /CMM (150-450); RED BLOOD CELL COUNT(AUTO) 3.03 MIL/uL (4.0-5.2)
[2018-10-31 06:32] LABS: CALCIUM, SERUM 7.9 mg/dL (8.5-10.1); CARBON DIOXIDE 21 mmol/L (21-32); CHLORIDE 104 mmol/L (98-107); CREATININE 1.9 mg/dL (0.6-1.3); GLUCOSE 85 mg/dL (74-106); POTASSIUM 3.9 mmol/L (3.5-5.1); SODIUM SERUM 133 mmol/L (136-145); UREA NITROGEN, BLOOD 70 mg/dL (7-18)
--- NOTE | 2018-10-31 06:50 | NUR ---
RN NOTES PATIENT IN THE BED A/O X1 ANDORRAN SPEAKING FEMALE WITH CONFUSION. ON O2 2LNC, PATIENT HAS NO ACUTE RESPIRATORY DISTRESS, UNLABORED, V/S TAKEN STABLE, PATIENT HAS DISTENDED ABDOMEN PAINFUL WHEN TOUCHED. PATIENT FEEL WEAK, KEEP HOB ELEVATED, ASSIST TURN AND REPOSITION Q 2 HR. PATIENT RE DIRECTABLE. ASIST TURN AND REPOSITION Q 2 HR. SCHEDULED MEDICATION ADMINISTERED. RIGHT UA MIDLINE INTACT. PATIENT POOR EATER. DAUGHTER AT BEDSIDE, ASSISTED TURN AND REPOSITIONING Q 2 HR AND PRN, CALL LIGHT WITHIN REACH, ON SAFETY PRECAUTION MONITORING ALL THE TIME, ABLE TO REST AND SLEEP WITH LONG INTERVALS, WILL ENDORSE TO AM NURSE FOR CONTINUITY OF CARE.
--- NOTE | 2018-10-31 07:30 | NUR ---
RN AM SHIFT NOTE PATENT IN BED RESPONSIVE AND ALERT TO NAME , CONFUSED BUT ABLE TO RESPOND. BLOOD PRESSURE LOW THIS AM, HELD BLOOD THINNERS. DR AWARE OF BONE BIOPSY THAT WAS DONE YESTERDAY. MD AWARE SCANT VAGINAL BLOOD, NO NEW ORDERS AT THIS TIME. MD AWARE OF PLATELETS AND LAB VALUES. CONTINUE TO MONITOR FOLLOW UP IF PLATELETS DROP. FAMILY AWARE, CONTINUE TO MONITOR.
[2018-10-31 08:00] VITALS: BP 96/63
[2018-10-31] MEDS: SPIRONOLACTONE 25 MG TABLET PO SCH (08:53)
[2018-10-31] MEDS: FAMOTIDINE/PF INJ 20 MG/2 ML VIAL IV SCH ×2 (08:53→22:14)
[2018-10-31] MEDS: DOCUSATE SODIUM 100 MG CAPSULE PO SCH (08:54)
[2018-10-31] MEDS: LACTULOSE 10 G/15 ML UDC (PYXIS) PO SCH ×2 (08:54→17:13)
[2018-10-31] MEDS: RIFAXIMIN 550 MG TABLET PO SCH ×2 (08:54→17:14)
[2018-10-31] MEDS: NYSTATIN TOP POWDER 15 GM BOTTLE TP SCH ×2 (08:56→17:14)
[2018-10-31] MEDS: Z GUARD REMEDY 2 OZ OINT TP SCH (09:00)
[2018-10-31 12:00] VITALS: BP 100/66
[2018-10-31 16:00] VITALS: BP 126/57
--- NOTE | 2018-10-31 18:41 | NUR ---
RN CLOSING NOTE PATIENT IN BED AND RESPONSIVE, S/P BONE MARROW BIOPSY DONE 10/30. MIDLINE PATENT AND INTACT. FAMILY AT BEDSIDE. SCANT AMOUNT VAGINAL BLOOD 5CC-10CC. MD AWARE. MONITOR PLATLETTS, HOLD BLOOD THINNERS, MONITOR VITALS. VITALS 110/60 TRENDS ARE CONSISTENTLY LOW. GAVE JUICE BY MOUTH DUE TO DECREASED APPETITTE, PATIENT KEPT CLEAN AND DRY. IV PATENT AND INTACT, PAIN MEDICATIONS NOT GIVEN PER FAMILY REQUEST. NO NEW ORDERS AT THIS TIME.
[2018-10-31 20:00] VITALS: BP 105/62
--- NOTE | 2018-10-31 20:00 | NUR ---
CARMEN RN NOTES RECEIVED PATENT IN BED RESPONSIVE AND ALERT TO NAME , CONFUSED BUT ABLE TO RESPOND. BLOOD PRESSURE LOW THIS AM, HELD BLOOD THINNERS DUE TO SCANT VAGINAL BLEEDING AT THIS TIME. BONE BIOPSY WAS DONE YESTERDAY. FAMILY MEMBERS ARE AT THE BEDSIDE. IV LINE ON DOMINIQUE AND RFA IS PATIENT AND INTACT. ALL SAFETY MEASURES ARE IMPLEMENTED, BED IN LOW, LOCKED POSITION, CALL LIGHT WITHIN REACH. CONTINUE TO MONITOR FOLLOW UP IF PLATELETS DROP. FAMILY AWARE, CONTINUE TO MONITOR.
[2018-11-01 04:00] VITALS: BP 94/55
[2018-11-01] MEDS: CLOTRIMAZOLE 10 MG TROCHE MM SCH ×5 (07:30→21:00)
[2018-11-01 08:00] VITALS: BP 90/55
--- NOTE | 2018-11-01 08:25 | NUR ---
RN OPENING NOTE PT WAS RECEIVED IN BED AT LOWEST AND LOCKED POSITION, A/OX2, BREATHING EVEN AND UNLABORED, NO S/S OF PAIN OR DISTRESS NOTED, SAFETY PRECAUTIONS IN PLACE, CALL LIGHT WITHIN REACH, WILL MONITOR ACCORDINGLY
[2018-11-01] MEDS ORDERED: RIVAROXABAN 10 MG TABLET PO SCH (09:00)
[2018-11-01] MEDS: SPIRONOLACTONE 25 MG TABLET PO SCH (09:00)
[2018-11-01] MEDS: LACTULOSE 10 G/15 ML UDC (PYXIS) PO SCH ×2 (09:58→16:27)
[2018-11-01] MEDS: DOCUSATE SODIUM 100 MG CAPSULE PO SCH (09:58)
[2018-11-01] MEDS: Z GUARD REMEDY 2 OZ OINT TP SCH (09:59)
[2018-11-01] MEDS: RIFAXIMIN 550 MG TABLET PO SCH ×2 (09:59→16:27)
[2018-11-01] MEDS: NYSTATIN TOP POWDER 15 GM BOTTLE TP SCH ×2 (09:59→16:27)
[2018-11-01] MEDS: FAMOTIDINE/PF INJ 20 MG/2 ML VIAL IV SCH ×2 (09:59→20:54)
[2018-11-01] MEDS ORDERED: LIDOCAINE 1% INJ 50 ML MDV IJ ONE (10:00)
[2018-11-01 12:41] VITALS: BP 90/55
[2018-11-01] MEDS ORDERED: FEE PK DOSING 1 MIN EA MC ONE (16:49)
[2018-11-01 16:58] LABS: CALCIUM, SERUM 7.8 mg/dL (8.5-10.1); CARBON DIOXIDE 19 mmol/L (21-32); CHLORIDE 102 mmol/L (98-107); CREATININE 2.2 mg/dL (0.6-1.3); GLUCOSE 139 mg/dL (74-106); POTASSIUM 4.2 mmol/L (3.5-5.1); SODIUM SERUM 133 mmol/L (136-145); UREA NITROGEN, BLOOD 70 mg/dL (7-18)
[2018-11-01] MEDS ORDERED: VANCOMYCIN 1 GM in IV D5W 250 ML IV ONE (17:00)
[2018-11-01] MEDS ORDERED: NYSTATIN SUSP 100,000 U/ML BOTTLE PO SCH (17:00)
--- NOTE | 2018-11-01 18:21 | NUR ---
RN CLOSING NOTE PT IN BED AT LOWEST AND LOCKED POSITION WITH SIDE RAILS UP X2, PT RESTING COMFORTABLY, BREATHING EVEN AND UNLABORED, NO S/S OF PAIN OR DISTRESS, IV PATENT AND INTACT, FAMILY AT THE BEDSIDE SAFETY PRECAUTIONS IN PLACE, CALL LIGHT WITHIN REACH, ALL NEEDS ATTENDED TO, WILL ENDORSE TO MASK INSPECTOR RN FOR VIVEK.
--- NOTE | 2018-11-01 18:25 | NUR ---
RN NOTE RECEIVED CALL FROM PHARMACY THAT CLOTRIMAZOLE IS ON SHORTAGE AND NONE IS CURRENTLY IN STOCK, MED NOT GIVEN DUE TO AVAILABILITY
--- NOTE | 2018-11-01 19:30 | NUR ---
RN INITIAL NOTES: RECEIVED REPORT FROM DARELL LÓPEZ. PT IN BED, ON 2L NC ON AND OFF, FAMILY AT BED SIDE. PT HAS DOMINIQUE MIDLINE IN PLACED, PATENT AND FLUSHING WELL, ON HL. PT ON LACTULOSE, DUE TO ELEVATED AMMONIA LEVEL, HAVING LOOSE BM, PER REPORT PT BEEN HAVING EPISODE OF SMALL AMOUNT VAGINAL BLEEDING, SEEN AND FOLLOWED BY DR JANET MD AWARE. S/P BONE MARROW BIOPSY 10/31, S/P PARACENTESIS 10/27. DISCUSSED PLAN OF CARE TO PT AND FAMILY. SAFETY PRECAUTIONS FOR FALL INITIATED, CALL LIGHT IN REACH, WILL CONTINUE MONITORING PT.
[2018-11-01 20:00] VITALS: BP 113/50
[2018-11-01] MEDS: NYSTATIN (PYXIS) 500,000 UNIT/5 ML ORAL.SUSP PO SCH (20:53)
--- NOTE | 2018-11-01 21:03 | NUR ---
NON ADMIN OF MYCELEX: CLOTRIMAZOLE/MYCELEX MEDICATION NOT AVAILABLE DUE TO DRUG SHORTAGE PER PHARMACY
[2018-11-02 04:00] VITALS: BP 115/68
--- NOTE | 2018-11-02 06:46 | NUR ---
RN CLOSING NOTES: PT IN BED, REMAINS ON 2L OXYGEN VIA NC, REMAINS A/O X2, ABLE TO MAKE NEEDS KNOWN. IV ACCESS REMAINS PATENT AND FLUSHING WELL, ON HL. VS REMAINS STABLE, NEEDS ATTENDED. PT BEEN ON LACTULOSE, PT HAD A TOTAL OF 8X LOOSE BM. SAFETY PRECAUTIONS FOR FALL REMAINS ENGAGED, CALL LIGHT IN REACH, WILL ENDORSE TO DAY RN FOR CONTINUITY OF CARE.
[2018-11-02 06:52] LABS: CALCIUM, SERUM 8.2 mg/dL (8.5-10.1); CARBON DIOXIDE 20 mmol/L (21-32); CHLORIDE 103 mmol/L (98-107); CREATININE 2.1 mg/dL (0.6-1.3); GLUCOSE 93 mg/dL (74-106); POTASSIUM 4.1 mmol/L (3.5-5.1); SODIUM SERUM 133 mmol/L (136-145); UREA NITROGEN, BLOOD 71 mg/dL (7-18)
[2018-11-02] MEDS: CLOTRIMAZOLE 10 MG TROCHE MM SCH (07:00)
--- NOTE | 2018-11-02 07:02 | NUR ---
NON ADMIN MYCELEX: CONTACTED PHARMACY, ASKED ABOUT MYCELEX, PER PHARMACY MED STILL NOT AVAILABLE DUE TO SHORTAGE
--- NOTE | 2018-11-02 07:15 | NUR ---
RN OPENING NOTE RECEIVED PATIENT IN BED AWAKE, A&Ox2 SLOVENIAN SPEAKING. PATIENT HAS GENERALIZED EDEMA, +4 ON ANA LOWER EXTREMITIES. HAS A RIGHT UPPER ARM MIDLINE, INTACT PATENT AND SALINE FLUSHED. PATIENT ASKED TO RAISE THE HOB. NEEDS MET. BED LOCKED AND ON LOW POSITION. CALL LIGHT WITHIN REACH. WILL CONT TO MONITOR
[2018-11-02 08:00] VITALS: BP 96/70
[2018-11-02] MEDS: NYSTATIN (PYXIS) 500,000 UNIT/5 ML ORAL.SUSP PO SCH ×4 (08:05→20:53)
[2018-11-02] MEDS: LACTULOSE 10 G/15 ML UDC (PYXIS) PO SCH ×2 (08:05→16:33)
[2018-11-02] MEDS: RIFAXIMIN 550 MG TABLET PO SCH ×2 (08:06→16:33)
[2018-11-02] MEDS: FAMOTIDINE/PF INJ 20 MG/2 ML VIAL IV SCH ×2 (08:06→20:53)
[2018-11-02] MEDS: DOCUSATE SODIUM 100 MG CAPSULE PO SCH (08:06)
[2018-11-02] MEDS: SPIRONOLACTONE 25 MG TABLET PO SCH (08:06)
[2018-11-02] MEDS: NYSTATIN TOP POWDER 15 GM BOTTLE TP SCH ×2 (08:09→16:34)
[2018-11-02] MEDS: ACETAMINOPHEN 650 MG/SUPP.RECT RC PRN (08:10)
--- NOTE | 2018-11-02 10:38 | NUR ---
RENE NOTE DANNYELEX NOT ADMIN DUE TO SHORTAGE, PER PHARMACY Addendum: 11/02/18 at 1044 by JESSICA WONG RN DRUG DISCONTINUED PER MD SANTOS
[2018-11-02] MEDS ORDERED: CLOTRIMAZOLE 10 MG TROCHE MM SCH (11:00)
[2018-11-02] MEDS: Z GUARD REMEDY 2 OZ OINT TP SCH (13:09)
[2018-11-02 16:00] VITALS: BP 100/73
[2018-11-02 16:51] VITALS: BP 100/73
[2018-11-02] MEDS: MENTHOL/CETYLPYRD (CEPACOL) 1 LOZ LOZENGE PO PRN (18:16)
--- NOTE | 2018-11-02 18:18 | NUR ---
RN NOTE PATIENT HAS BEEN EATING FOOD BROUGHT FROM HOME BY THE DAUGHTER. PATIENT ATE >50% OF HER FOOD FOR BREAKFAST AND LUNCH. FOR DINNER 75%.
--- NOTE | 2018-11-02 19:14 | NUR ---
RN CLOSING NOTE PT IN BED, REMAINS ON 2L OXYGEN VIA NC, REMAINS A/O X2. FAMILY ON BEDSIDE. ABLE TO MAKE NEEDS KNOWN. IV ACCESS REMAINS PATENT AND FLUSHING WELL, SALINE LOCKED. VS REMAINS STABLE, NEEDS ATTENDED. PT BEEN ON LACTULOSE, PT HAD A TOTAL OF 6X BM. SAFETY PRECAUTIONS FOR FALL REMAINS ENGAGED, CALL LIGHT IN REACH, ENDORSED TO NOC SHIFT RN FOR CONTINUITY OF CARE.
--- NOTE | 2018-11-02 20:00 | NUR ---
RN MS INITIAL NOTE RECEIVED PATIENT IN BED AWAKE, A&Ox2 ETHIOPIAN SPEAKING. PATIENT HAS GENERALIZED EDEMA, +4 ON ANA LOWER EXTREMITIES. HAS A RIGHT UPPER ARM MIDLINE, INTACT PATENT AND SALINE FLUSHED. PATIENT ASKED TO RAISE THE HOB. NEEDS MET. BED LOCKED AND ON LOW POSITION. CALL LIGHT WITHIN REACH. WILL CONT TO MONITOR
[2018-11-03 00:31] VITALS: BP 110/68
--- NOTE | 2018-11-03 06:21 | NUR ---
RN MS CLOSING NOTE ENDORSED PATIENT IN BED AWAKE, A&Ox2 ITALIAN SPEAKING. PATIENT HAS GENERALIZED EDEMA, +4 ON ANA LOWER EXTREMITIES. HAS A RIGHT UPPER ARM MIDLINE, INTACT PATENT AND SALINE FLUSHED. PATIENT ASKED TO RAISE THE HOB. NEEDS MET. BED LOCKED AND ON LOW POSITION. CALL LIGHT WITHIN REACH. WILL CONT TO MONITOR
[2018-11-03 06:32] LABS: CALCIUM, SERUM 8.1 mg/dL (8.5-10.1); CARBON DIOXIDE 21 mmol/L (21-32); CHLORIDE 102 mmol/L (98-107); CREATININE 2.2 mg/dL (0.6-1.3); GLUCOSE 96 mg/dL (74-106); POTASSIUM 4.4 mmol/L (3.5-5.1); SODIUM SERUM 134 mmol/L (136-145); UREA NITROGEN, BLOOD 71 mg/dL (7-18)
--- NOTE | 2018-11-03 07:15 | NUR ---
MS RN OPENING NOTE RECEIVED PATIENT FROM PEWTER FABRICATOR NURSE. IN BED AWAKE, A&Ox2 ESTONIAN SPEAKING. FAMILY AT BEDSIDE. PATIENT HAS GENERALIZED EDEMA, +4 ON ANA LOWER EXTREMITIES. HAS A RIGHT UPPER ARM MIDLINE, INTACT PATENT AND SALINE FLUSHED. BED LOCKED AND ON LOW POSITION. CALL LIGHT WITHIN REACH. WILL CONT TO MONITOR THROUGHOUT SHIFT.
[2018-11-03 08:00] VITALS: BP 111/69
[2018-11-03] MEDS: DOCUSATE SODIUM 100 MG CAPSULE PO SCH (09:00)
[2018-11-03] MEDS: NYSTATIN (PYXIS) 500,000 UNIT/5 ML ORAL.SUSP PO SCH ×3 (09:07→17:22)
[2018-11-03] MEDS: LACTULOSE 10 G/15 ML UDC (PYXIS) PO SCH ×2 (09:08→17:22)
[2018-11-03] MEDS: SPIRONOLACTONE 25 MG TABLET PO SCH (09:08)
[2018-11-03] MEDS: RIFAXIMIN 550 MG TABLET PO SCH ×2 (09:09→17:22)
[2018-11-03] MEDS: FAMOTIDINE/PF INJ 20 MG/2 ML VIAL IV SCH (09:10)
[2018-11-03] MEDS: NYSTATIN TOP POWDER 15 GM BOTTLE TP SCH ×2 (09:11→17:24)
[2018-11-03] MEDS: Z GUARD REMEDY 2 OZ OINT TP SCH (09:12)
--- NOTE | 2018-11-03 10:15 | NUR ---
MS RN NOTE NOTIFIED PATIENT'S DAUGHTER ABOUT STAT ULTRASOUND GUIDED PARACENTESIS ORDERED BY . CONSENT SIGNED BY DAUGHTER.
[2018-11-03] MEDS: MENTHOL/CETYLPYRD (CEPACOL) 1 LOZ LOZENGE PO PRN (13:08)
[2018-11-03 16:00] VITALS: BP 114/50
[2018-11-03] MEDS ORDERED: VANCOMYCIN 1.25 GM in IV D5W 500 ML IV SCH (17:00)
[2018-11-03] MEDS ORDERED: VANCOMYCIN 1 GM in IV D5W 250 ML IV SCH (17:00)
--- NOTE | 2018-11-03 19:00 | NUR ---
MS RN CLOSING NOTES PT IN BED AWAKE, A&Ox2 CAMBODIAN SPEAKING. FAMILY AT BEDSIDE. PATIENT HAS GENERALIZED EDEMA, +4 ON ANA LOWER EXTREMITIES. HAS A RIGHT UPPER ARM MIDLINE, INTACT AND PATENT, VANCOMYCIN RUNNING AND TOLERATING WELL. DISCHARGE ORDER NOTED. EXIT CARE DONE AND RECORDED. BED LOCKED AND ON LOWEST POSITION. CALL LIGHT WITHIN REACH. ENDORSED TO ACLS NURSE NURSE FOR VIVEK.
[2018-11-03 20:00] VITALS: BP 95/53
--- NOTE | 2018-11-03 20:01 | NUR ---
MS RN NOTES RECEIVED PT ON BED. ON NASAL CANNULA 2LPM NO RESPIRATORY DISTRESS NOTED. IV ACCESS ON DOMINIQUE MIDLINE PATENT AND INTACT. DAUGHTER AT BEDSIDE. HEAD OF BED ELEVATED. SIDE RAILS UP. CALL LIGHT WITHIN REACH. BED ALARM ON.WILL CONTINUE TO MONITOR PT CLOSELY.
--- NOTE | 2018-11-03 21:50 | NUR ---
MS RN NOTES PT D/C STABLE. O2 SAT ON ROOM AIR 96%, BP 99/58MMHG. HR 100. D/C TEACHING DONE REGARDING MEDICATIONS S/E, TIMING AND DOSAGE. PT D/C @ 2229 WITH EMT VIA AMBULANCE
== END 2018-11-03 22:01 | disposition home health service (06) | DRG 871 ==
LOC: ER 21:26 → TELE1 10-17 00:01 → MEDSG1 10-18 10:14
PROVIDERS: ADMIT Internal Medicine; ATTEND Internal Medicine
PROC: 0W9G3ZZ Drainage of Peritoneal Cavity, Percutaneous Approach (ICD-10-PCS; principal; 2018-10-18)
PROC: 05H533Z Insertion of Infusion Device into Right Subclavian Vein, Percutaneous Approach (ICD-10-PCS; 2018-10-25)
PROC: 0W9G3ZZ Drainage of Peritoneal Cavity, Percutaneous Approach (ICD-10-PCS; 2018-10-27)
PROC: 07DR3ZX Extraction of Iliac Bone Marrow, Percutaneous Approach, Diagnostic (ICD-10-PCS; 2018-10-30)
PROC: 0W9G3ZZ Drainage of Peritoneal Cavity, Percutaneous Approach (ICD-10-PCS; 2018-11-03)
DX: A41.9 Sepsis, unspecified organism (principal); N17.0 Acute kidney failure with tubular necrosis; G92 Toxic encephalopathy; E43 Unspecified severe protein-calorie malnutrition; K65.9 Peritonitis, unspecified; I13.0 Hypertensive heart and chronic kidney disease with heart failure and stage 1 through stage 4 chronic kidney disease, or unspecified chronic kidney disease; R18.8 Other ascites; I82.411 Acute embolism and thrombosis of right femoral vein; E87.1 Hypo-osmolality and hyponatremia; E87.2 Acidosis; D68.59 Other primary thrombophilia; K76.6 Portal hypertension; B37.0 Candidal stomatitis; N39.0 Urinary tract infection, site not specified; B37.49 Other urogenital candidiasis; E87.6 Hypokalemia; K72.90 Hepatic failure, unspecified without coma; E86.0 Dehydration; N18.9 Chronic kidney disease, unspecified; I50.9 Heart failure, unspecified; E78.5 Hyperlipidemia, unspecified; K74.60 Unspecified cirrhosis of liver; E11.22 Type 2 diabetes mellitus with diabetic chronic kidney disease; I25.10 Atherosclerotic heart disease of native coronary artery without angina pectoris; B96.20 Unspecified Escherichia coli [E. coli] as the cause of diseases classified elsewhere; D47.2 Monoclonal gammopathy; D69.6 Thrombocytopenia, unspecified; R65.20 Severe sepsis without septic shock; K59.00 Constipation, unspecified; D64.9 Anemia, unspecified; R13.10 Dysphagia, unspecified; L98.8 Other specified disorders of the skin and subcutaneous tissue; E66.9 Obesity, unspecified; Z68.37 Body mass index [BMI] 37.0-37.9, adult; R16.1 Splenomegaly, not elsewhere classified; K75.81 Nonalcoholic steatohepatitis (NASH); B95.61 Methicillin susceptible Staphylococcus aureus infection as the cause of diseases classified elsewhere
CPT/HCPCS: 36415; 36569; 70450-TC; 71045-TC; 74018; 76700-TC; 76942-TC; 77075-TC; 80048-TC; 80053-TC; 80061-TC; 80074; 80076-TC; 80202-TC; 81000-TC; 82010-TC; 82040-TC; 82105; 82140-TC; 82232; 82248-TC; 82533; 82550-TC; 82570-TC; 82962-TC; 83605-TC; 83735-TC; 83935-TC; 83970; 84100-TC; 84155; 84155-TC; 84165; 84300-TC; 84443-TC; 84484-TC; 84550-TC; 85025-TC; 85610-TC; 85730-TC; 87040-TC; 87070-TC; 87075-TC; 87081-TC; 87086-TC; 87186-TC; 87340; 88305-TC; 88312-TC; 88342; 89051-TC; 92611-TC; 93307-TC; 93970-TC; 97110-TC; 97112-TC; 97116-TC; 97530-TC; A4216; A4217; A6253; A6402; C9113; G0378; J0696; J1170; J1644; J1940; J2248; J2405; J3370; J3490; J7030; J7040; J7050; J7060; P9045; P9047